=== PATIENT | male | born 1975 | race Caucasian/White ===

== ENCOUNTER 2016-07-18 18:30 | Emergency (ER) | payer SELFPAY ==
--- NOTE | 2016-07-18 19:00 | ER Document Report ---
ED Medical Screen (RME) - General Stated Complaint: BACK PAIN Time seen by provider: 18:58 Mode of Arrival: Wheelchair Information source: Patient Notes: 40-year-old male presents to ED left flank area. He states he has a chronic pain in that area and when the cold and 1 today the pain got much worse. States he is urinating normal. States he was working up on the roof today and is not sure if this is a continuation over his chronic back pain with this is a new problem. I have greeted and performed a rapid initial assessment of this patient. A comprehensive ED assessment and evaluation of the patient, analysis of test results and completion of medical decision making process will be conducted by an additional ED providers. TRAVEL OUTSIDE OF THE [place] IN LAST 30 DAYS: No - Related Data Allergies/Adverse Reactions: naproxen [Naproxen] Allergy (Verified 07/29/12 17:39) Past Medical History Renal/ Medical History: Reports: Hx Kidney Stones Musculoskeltal Medical History: Reports Hx Arthritis - Immunizations Hx Diphtheria, Pertussis, Tetanus Vaccination: Yes
[2016-07-18] MEDS ORDERED: ACETAMINOPHEN 325 MG TABLET PO ONE (19:01)
[2016-07-18 20:30] LABS: APPEARANCE,URINE SLIGHTLY-CLOUDY; BILIRUBIN,URINE NEGATIVE (NEGATIVE); GLUCOSE, URINE NEGATIVE (NEGATIVE); KETONES,URINE TRACE mg/dL (NEGATIVE); LEUKOCYTE ESTERASE,URINE NEGATIVE (NEGATIVE); NITRITE,URINE NEGATIVE (NEGATIVE); PROTEIN,URINE NEGATIVE (NEGATIVE); URINE SPECIFIC GRAVITY 1.009; UROBILINOGEN,URINE NEGATIVE mg/dL (<2.0)
[2016-07-18] MEDS ORDERED: PREDNISONE 20 MG TABLET PO ONE (20:30)
[2016-07-18] MEDS ORDERED: OXYCODONE HCL IR 5 MG TABLET PO ONE (20:30)
--- NOTE | 2016-07-18 20:32 | ER Document Report ---
ED General - General Chief Complaint: Back Pain Stated Complaint: BACK PAIN Time seen by provider: 20:30 Mode of Arrival: Wheelchair Notes: Patient is a 40-year-old male that comes emergency department for chief complaint of pain in his back in the left mid back, he denies radiation of the pain, he states symptoms started after he got off of the roof which she was working on today. Eyes any injury to the area, he states he's been told that he has herniated disks in the past, he also has a history of kidney stones but states this does not feel the same. He denies fever, nausea or vomiting, denies any other medical history. TRAVEL OUTSIDE OF THE [place] IN LAST 30 DAYS: No - Related Data Allergies/Adverse Reactions: naproxen [Naproxen] Allergy (Verified 07/29/12 17:39) Past Medical History - General Information source: Patient - Social History Smoking Status: Current Every Day Smoker Chew tobacco use (# tins/day): No Frequency of alcohol use: None Drug Abuse: None Lives with: Family Family History: Reviewed & Not Pertinent Patient has suicidal ideation: No Patient has homicidal ideation: No Renal/ Medical History: Reports: Hx Kidney Stones. Denies: Hx Peritoneal Dialysis Musculoskeltal Medical History: Reports Hx Arthritis Surgical Hx: Negative - Immunizations Hx Diphtheria, Pertussis, Tetanus Vaccination: Yes Review of Systems - Review of Systems Constitutional: No symptoms reported EENT: No symptoms reported Cardiovascular: No symptoms reported Respiratory: No symptoms reported Gastrointestinal: No symptoms reported Genitourinary: No symptoms reported Male Genitourinary: No symptoms reported Musculoskeletal: See HPI Skin: No symptoms reported Hematologic/Lymphatic: No symptoms reported Neurological/Psychological: No symptoms reported Physical Exam - Vital signs Vitals: Temp Pulse Resp BP Pulse Ox 97.7 F 87 20 148/87 H 99 07/18/16 18:59 07/18/16 18:59 07/18/16 18:59 07/18/16 18:59 07/18/16 18:59 Interpretation: Normal - General General appearance: Alert, Anxious In distress: Mild - Patient moves with some discomfort but does not appear to be in severe distress - HEENT Head: Normocephalic, Atraumatic Eyes: Normal Conjunctiva: Normal Extraocular movements intact: Yes Eyelashes: Normal Pupils: PERRL Sinus: Normal Nasal: Normal Mouth/Lips: Normal Mucous membranes: Normal Pharynx: Normal Neck: Normal - Respiratory Respiratory status: No respiratory distress Chest status: Nontender Breath sounds: Normal. No: Decreased air movement, Wheezing Chest palpation: Normal - Cardiovascular Rhythm: Regular. No: Tachycardia Heart sounds: Normal auscultation, S1 appreciated, S2 appreciated Murmur: No - Abdominal Inspection: Normal Distension: No distension Bowel sounds: Normal Tenderness: Nontender Organomegaly: No organomegaly - Back Back: Tender - Tender in the left paraspinal lumbar musculature, no CVA tenderness, no midline tenderness, patient moves upper and lower extremities in full range of motion without difficulty, patient does ambulate with a slight limp, negative straight leg raises, no saddle anesthesia, normal distal neurovascular exam - Extremities General upper extremity: Normal inspection, Nontender, Normal strength, Normal temperature General lower extremity: Normal inspection, Nontender, Normal strength, Normal temperature - Neurological Neuro grossly intact: Yes Cognition: Normal Orientation: AAOx4 [place] Coma Scale Eye Opening: Spontaneous [place] Coma Scale Verbal: Oriented [place] Coma Scale Motor: Obeys Commands Reagan Coma Scale Total: 15 Speech: Normal Motor strength normal: LUE, RUE, LLE, RLE Sensory: Normal - Psychological Associated symptoms: Normal affect, Normal mood - Skin Skin Temperature: Warm Skin Moisture: Dry Skin Color: Normal Course - Re-evaluation Re-evalutation: Patient ambulates but with slight difficulty and some pain, negative straight leg raises, no neurovascular deficits, painful palpation of the left lumbar paraspinal musculature. Will place patient on prednisone, pain medication, instructed to rest and care of his back, patient will follow-up with primary care and return for any concerning or worsening symptoms. Patient states satisfaction agreement with plan. - Vital Signs Vital signs: Temp Pulse Resp BP Pulse Ox 97.6 F 74 16 152/97 H 98 07/18/16 21:29 07/18/16 21:29 07/18/16 21:29 07/18/16 21:29 07/18/16 21:29 - Laboratory Laboratory results interpreted by me: 07/18/16 20:10 Urine Ketones TRACE H Urine Blood SMALL H Discharge - Discharge Clinical Impression: Back pain Qualifiers: Back pain location: low back pain Chronicity: acute Back pain laterality: left Sciatica presence: without sciatica Qualified Code(s): M54.5 - Low back pain Condition: Stable Disposition: HOME, SELF-CARE Additional Instructions: Imaging of the lower spine shows mild degenerative disc disease (arthritis) but no other abnormalities were noted. Your urine does not indicate any concerning abnormalities. Take the pain medication if needed, take prednisone as directed with food, rest , avoid lifting and twisting. Follow-up with primary care. Return to the emergency department for any concerning or worsening symptoms including difficulties with your bowel or bladder, loss of sensation, fever, etc. Prescriptions: Oxycodone HCl/Acetaminophen [Percocet 5-325 mg Tablet] 1 - 2 tab PO Q4H PRN #15 tablet PRN Reason: Prednisone [Deltasone 10 mg Tablet] 10 mg PO ASDIR PRN #21 tablet PRN Reason:
[2016-07-18 21:41] VITALS: BP 152/97
== END 2016-07-18 20:35 | disposition home or self-care (01) ==
LOC: ER 18:30
DX: M54.5 Low back pain (principal); F17.200 Nicotine dependence, unspecified, uncomplicated
CPT/HCPCS: 99283; 81001; 72110; J7512

== ENCOUNTER 2016-09-06 17:43 | Emergency (ER) | payer SELFPAY ==
--- NOTE | 2016-09-06 17:54 | ER Document Report ---
ED Medical Screen (RME) - General Stated Complaint: BACK PAIN Notes: Patient is a 40-year-old male presents with complaint of chronic back pain. Patient states that he takes Motrin and BC powder. He is not on pain management. Able to ambulate. Denies any urinary or stool incontinence. Denies any saddle anesthesia I have greeted and performed a rapid initial assessment of this patient. A comprehensive ED assessment and evaluation of the patient, analysis of test results and completion of the medical decision making process will be conducted by additional ED providers. TRAVEL OUTSIDE OF THE [place] IN LAST 30 DAYS: No - Related Data Allergies/Adverse Reactions: naproxen [Naproxen] Allergy (Verified 09/06/16 17:52) Past Medical History Renal/ Medical History: Reports: Hx Kidney Stones. Denies: Hx Peritoneal Dialysis Musculoskeltal Medical History: Reports Hx Arthritis - Immunizations Hx Diphtheria, Pertussis, Tetanus Vaccination: Yes Physical Exam - Vital signs Vitals: Temp Pulse Resp BP Pulse Ox 98.6 F 85 16 153/87 H 97 09/06/16 17:51 09/06/16 17:51 09/06/16 17:51 09/06/16 17:51 09/06/16 17:51 Course - Vital Signs Vital signs: Temp Pulse Resp BP Pulse Ox 98.6 F 85 16 153/87 H 97 09/06/16 17:51 09/06/16 17:51 09/06/16 17:51 09/06/16 17:51 09/06/16 17:51
[2016-09-06] MEDS ORDERED: OXYCODONE-ACETAMINOPHEN 5-325 MG TABLET PO ONE (19:34)
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
[2016-09-06 19:50] VITALS: BP 160/78
== END 2016-09-06 19:50 | disposition home or self-care (01) ==
LOC: ER 17:43
DX: M54.9 Dorsalgia, unspecified (principal); R03.0 Elevated blood-pressure reading, without diagnosis of hypertension; F17.210 Nicotine dependence, cigarettes, uncomplicated
CPT/HCPCS: 99283

== ENCOUNTER 2016-10-08 21:53 | Emergency (ER) | payer SELFPAY | END 2016-10-08 23:36 | disposition left against medical advice (07) | LOC: ER 21:53 | DX: Z53.9 Procedure and treatment not carried out, unspecified reason (principal); M54.9 Dorsalgia, unspecified ==

== ENCOUNTER → 2016-11-12 | Outpatient (CLI) | payer OTHER ==
--- NOTE | 2016-11-12 09:01 | RADIOLOGY REPORT (SQ) ---
EXAM DESCRIPTION: MRI LUMBAR SPINE WITHOUT COMPLETED DATE/TIME: 11/12/2016 8:51 am REASON FOR STUDY: STRAIN OF MUSCLE, FASCIA AND TENDON OF LUMBAR S39.012A STRAIN OF MUSCLE, FASCIA A ND TENDON OF LOWER BACK, M54.16 RADICULOPATHY, LUMBAR REGION COMPARISON: None. TECHNIQUE: Sagittal and Axial imaging includes T1, T2, STIR and gradient echo sequences. Coronal T2/ HASTE imaging. LIMITATIONS: None. FINDINGS: VISUALIZED UPPER ABDOMEN: Limited evaluation. No acute or suspicious findings suggested. SEGMENTATION: No transitional anatomy. The lowest well-developed disc space is labeled L5-S1. ALIGNMENT: Anatomic. VERTEBRAE: Intact. BONE MARROW: Normal. No marrow replacement or reactive changes. DISC SIGNAL: Normal. No significant abnormal signal or loss of height. POSTERIOR ELEMENTS: Generally intact. No pars defect evident. HARDWARE: None in the spine. CORD AND CONUS: Normal in size and signal intensity. Conus at the appropriate level. SOFT TISSUES: No aortic aneurysm seen. No bulky retroperitoneal adenopathy or mass. No paraspinal mas s or fluid. L1-L2: No significant spinal stenosis or exit foraminal stenosis. L2-L3: No significant spinal stenosis or exit foraminal stenosis. L3-L4: No significant spinal stenosis or exit foraminal stenosis. L4-L5: No significant spinal stenosis or exit foraminal stenosis. L5-S1: No significant spinal stenosis or exit foraminal stenosis. LOWER THORACIC: Incompletely imaged. No stenosis seen. SACRUM: Visualized upper sacrum intact. OTHER: No other significant findings. IMPRESSION: NORMAL MRI LUMBAR SPINE. TECHNICAL DOCUMENTATION: JOB ID: [id number] [employer]- All Rights Reserved
== END ==
LOC: RAD 07:59
PROVIDERS: ATTEND Physician Assistant
DX: S39.012A Strain of muscle, fascia and tendon of lower back, initial encounter (principal); M54.16 Radiculopathy, lumbar region
CPT/HCPCS: 72148

== ENCOUNTER 2016-12-11 19:59 | Emergency (ER) | payer OTHER ==
[2016-12-11] MEDS ORDERED: LIDOCAINE 2% VISCOUS SOLN 20 ML UDCUP PO ONE (21:19)
[2016-12-11] MEDS ORDERED: METOCLOPRAMIDE HCL ORAL SOLN 10 MG/10 ML UDCUP PO ONE (21:19)
[2016-12-11] MEDS ORDERED: MAG HYDROX/AL HYDROX/SIMETH SUSP 30 ML UDCUP PO ONE (21:19)
--- NOTE | 2016-12-11 21:20 | ER Document Report ---
ED Medical Screen (RME) - General Chief Complaint: Chest Pain Stated Complaint: CHEST PAIN Time Seen by Provider: 12/11/16 21:18 Notes: 41-year-old male, chief complaint of chest pain, symptoms started at 6 PM while he was sitting down. He states the pain feels like it is under his left lower rib. He states it is improved from previously. He has already taken 500 mg of aspirin by using BC powder. He admits that he uses BC powder all the time. He denies vomiting, shortness of breath, fever. He smokes. His father had a heart attack. He denies personal history of cardiovascular disease, states she is treated for anxiety and depression. TRAVEL OUTSIDE OF THE [place] IN LAST 30 DAYS: No - Related Data Allergies/Adverse Reactions: naproxen [Naproxen] Allergy (Verified 09/06/16 17:52) Past Medical History Neurological Medical History: Reports: Hx Migraine Renal/ Medical History: Reports: Hx Kidney Stones. Denies: Hx Peritoneal Dialysis Musculoskeltal Medical History: Reports Hx Arthritis - Immunizations Hx Diphtheria, Pertussis, Tetanus Vaccination: Yes Physical Exam - Vital signs Vitals: Temp Pulse Resp BP Pulse Ox 97.9 F 90 18 168/95 H 97 12/11/16 20:32 12/11/16 20:32 12/11/16 20:32 12/11/16 20:32 12/11/16 20:32 - Cardiovascular Rhythm: Regular. No: Tachycardia Heart sounds: Normal auscultation, S1 appreciated, S2 appreciated - Abdominal Tenderness: Tender - Some left upper quadrant tenderness on exam, otherwise unremarkable Course - Vital Signs Vital signs: Temp Pulse Resp BP Pulse Ox 97.9 F 90 18 168/95 H 97 12/11/16 20:32 12/11/16 20:32 12/11/16 20:32 12/11/16 20:32 12/11/16 20:32
[2016-12-11 21:49] LABS: ABSOLUTE BASOPHILS # (AUTO) 0.2 10^3/uL (0.0-0.2); ABSOLUTE EOSINOPHILS # (AUTO) 0.7 10^3/uL (0.0-0.6); ABSOLUTE LYMPHOCYTES (AUTO) 2.5 10^3/uL (0.5-4.7); ABSOLUTE MONOCYTES (AUTO) 1.1 10^3/uL (0.1-1.4); ABSOLUTE NEUT (AUTO) 6.8 10^3/uL (1.7-8.2); BASOPHILS % (AUTO) 1.4 % (0-2); EOSINOPHILS % (AUTO) 6.5 % (0-6); HEMATOCRIT 43.8 % (37.9-51.0); HEMOGLOBIN 14.3 g/dL (13.5-17.0); HGB HCT DIFFERENCE -0.9; MEAN CORPUSCULAR HEMOGLOBIN 30.7 pg (27.0-33.4); MEAN CORPUSCULAR HGB CONC 32.6 g/dL (32.0-36.0); MEAN CORPUSCULAR VOLUME 94 fl (80-97); MONOCYTES % (AUTO) 9.8 % (3-13); RED BLOOD COUNT 4.65 10^6/uL (4.35-5.55); RED CELL DISTRIBUTION WIDTH 14.1 % (11.5-14.0); SEGMENTED NEUTROPHILS % (AUTO) 60.3 % (42-78); WHITE BLOOD COUNT 11.3 10^3/uL (4.0-10.5)
--- NOTE | 2016-12-11 21:51 | RADIOLOGY REPORT (SQ) ---
EXAM DESCRIPTION: CHEST SINGLE VIEW COMPLETED DATE/TIME: 12/11/2016 9:42 pm REASON FOR STUDY: chest pain COMPARISON: None. EXAM PARAMETERS: NUMBER OF VIEWS: One view. TECHNIQUE: Single frontal radiographic view of the chest acquired. RADIATION DOSE: NA LIMITATIONS: None. FINDINGS: LUNGS AND PLEURA: No opacities, masses or pneumothorax. No pleural effusion. MEDIASTINUM AND HILAR STRUCTURES: No masses. Contour normal. HEART AND VASCULAR STRUCTURES: Heart normal in size. Normal vasculature. BONES: No acute findings. HARDWARE: None in the chest. OTHER: No other significant finding. IMPRESSION: NO ACUTE RADIOGRAPHIC FINDING IN THE CHEST. TECHNICAL DOCUMENTATION: JOB ID: [id number]
[2016-12-11 22:05] LABS: ALANINE AMINOTRANSFERASE 45 U/L (21-72); ALBUMIN 4.3 g/dL (3.5-5.0); ALKALINE PHOSPHATASE 112 U/L (38-126); ANION GAP 14 (5-19); ASPARTATE AMINO TRANSFERASE 26 U/L (17-59); BILIRUBIN,DIRECT 0.3 mg/dL (0.0-0.4); BILIRUBIN,TOTAL 0.3 mg/dL (0.2-1.3); BLOOD UREA NITROGEN 19 mg/dL (7-20); CALCIUM 9.5 mg/dL (8.4-10.2); CARBON DIOXIDE 20 mmol/L (22-30); CHLORIDE 110 mmol/L (98-107); CREATINE KINASE 141 U/L (55-170); CREATININE RESULT 0.87 mg/dL (0.52-1.25); GLUCOSE 133 mg/dL (75-110); POTASSIUM 3.9 mmol/L (3.6-5.0); SODIUM 143.8 mmol/L (137-145); TOTAL PROTEIN 7.4 g/dL (6.3-8.2)
[2016-12-11 22:23] LABS: CREATINE KINASE MB 1.53 ng/mL (<4.55)
[2016-12-11 22:25] LABS: TROPONIN I < 0.012 ng/mL
--- NOTE | 2016-12-11 22:57 | ER Document Report ---
ED Cardiac - General Chief Complaint: Chest Pain Stated Complaint: CHEST PAIN Time Seen by Provider: 12/11/16 21:18 TRAVEL OUTSIDE OF THE [place] IN LAST 30 DAYS: No - HPI Notes: Patient is a 41yo male smoker who comes to the office c/o left lateral chest pain near the decubitus area x 4 hours. Pt states that he had the same pain yesterday about 1.5 hours after taking his celexa, which lasted for 2 hours then went away. The pain is described as dull, but can be sharp on occasion with occasional radiation around the left lateral side to his back. He was having pain with deep inspirations a few hours ago, but that has resolved. He did take 500mg ASA prior to arrival. Patient states that moving and twisting at the same time exacerbates the pain which is then decreased when he stops that motion. Pt able to ambulate without any CHEN or worsening CP. Father had a WI. No significant PMH/cardiac hx otherwise. He has a h/o anxiety/depression and panic attacks for which he is taking celexa and hydroxyzine for through [facility] (Dr. Smith). No past surgeries. patient states that he had a syncopal episode after being on naproxen for 1 week, so he has stayed away from it since. No other drug allergies. Denies any fever, URI symptoms, sore throat, cough, wheeze, sob, dyspnea, CHEN, palpitations, syncope, abd pain, n/v/d/c, urinary retention, loss of control of b/b, dysuria, hematuria, muscle weakness/ paralysis, or rash. - Related Data Allergies/Adverse Reactions: naproxen [Naproxen] Allergy (Verified 09/06/16 17:52) Past Medical History - Social History Smoking Status: Current Every Day Smoker Chew tobacco use (# tins/day): No Smoking Education Provided: Yes - <2mins Frequency of alcohol use: None Drug Abuse: None Family History: Reviewed & Not Pertinent Patient has suicidal ideation: No Patient has homicidal ideation: No Neurological Medical History: Reports: Hx Migraine Renal/ Medical History: Reports: Hx Kidney Stones. Denies: Hx Peritoneal Dialysis Musculoskeltal Medical History: Reports Hx Arthritis Surgical Hx: Negative - Immunizations Hx Diphtheria, Pertussis, Tetanus Vaccination: Yes Review of Systems - Review of Systems Notes: REVIEW OF SYSTEMS: CONSTITUTIONAL : Denies fever, chills, or sweats. Denies recent illness. EENT: Denies eye, ear, throat, or mouth pain or symptoms. Denies nasal or sinus congestion or discharge. Denies throat, tongue, or mouth swelling or difficulty swallowing. CARDIOVASCULAR: see hpi RESPIRATORY: see hpi GASTROINTESTINAL: Denies abdominal pain or distention. Denies nausea, vomiting , or diarrhea. Denies blood in vomitus, stools, or per rectum. Denies black, tarry stools. Denies constipation. GENITOURINARY: Denies difficulty urinating, painful urination, burning, frequency, blood in urine, or discharge. MUSCULOSKELETAL: see hpi SKIN: Denies rash, lesions or sores. NEUROLOGICAL: Denies confusion or altered mental status. Denies passing out or loss of consciousness. Denies dizziness or lightheadedness. Denies headache. Denies weakness or paralysis or loss of use of either side. Denies problems with gait or speech. Denies sensory loss, numbness, or tingling. Denies seizures. PSYCHIATRIC: see hpi. No SI/HI. ALL OTHER SYSTEMS REVIEWED AND NEGATIVE. Dictation was performed using [employer] voice recognition software Physical Exam - Vital signs Vitals: Temp Pulse Resp BP Pulse Ox 97.9 F 90 18 168/95 H 97 12/11/16 20:32 12/11/16 20:32 12/11/16 20:32 12/11/16 20:32 12/11/16 20:32 Notes: PHYSICAL EXAMINATION: GENERAL: Well-appearing, well-nourished and in no acute distress. HEAD: Atraumatic, normocephalic. EYES: Pupils equal round and reactive to light, extraocular movements intact, sclera anicteric, conjunctiva are normal. ENT: EAC clear b/l. TM's intact b/l without erythema, fluid, or perforation. Nares patent and without discharge. oropharynx clear without exudates. No tonsilar hypertrophy or erythema. Moist mucous membranes. No sinus tenderness. NECK: Normal range of motion, supple without lymphadenopathy. No rigidity. Chest: Non-tender, no deformity, equal rise. No ecchymosis, abrasion/ laceration noted. LUNGS: Breath sounds clear to auscultation bilaterally and equal. No wheezes rales or rhonchi. HEART: Regular rate and rhythm without murmurs, rubs, gallops. ABDOMEN: Soft, nontender, nondistended abdomen. No guarding, no rebound. No masses appreciated. Normal bowel sounds present. No CVA tenderness bilaterally. No pulsatile mass appreciated. Musculoskeletal: FROM to passive/active. Strength 5+/5. Extremities: No cyanosis, clubbing, or edema b/l. Peripheral pulses 2+. Capillary refill less than 3 seconds. NEUROLOGICAL: normal gait. Normal sensory, motor exams PSYCH: Normal mood, normal affect. SKIN: Warm, Dry, normal turgor, no rashes or lesions noted. Course - Re-evaluation Re-evalutation: 12/11/16 02:15 Patient is an afebrile, well-hydrated, 41yo male who presents with atypical chest pain after cardiac work up. Vitals stable. PE otherwise unremarkable. EKG neg x2 (Dr. Centeno reviewed), cardiac enzymes neg x2. CXR unremarkable. GI cocktail did not help per patient. I suspect that his atypical pain could be musculoskeletal/GI (pt consumes NSAIDs (BC powder) frequently). Low risk for pericarditis, ACS, pneumo, PE, or AAA based on work up. Heart Score of 2 (low) & PERC score of 0 (low). Pt tolerating PO intake in the ED. I will send him home with a trial of zantac/carafate for now with close f/u with his PCM in 2-3 days. Reviewed that they may pursue a stress test and/or further GI work up ( i.e. endoscopy). Advised to dec/stop smoking and stop the BC powder. Return to the ED with any worsening symptoms. Pt in agreement. Reviewed case with Dr. Maharaj who is in agreement with plan. - Vital Signs Vital signs: Temp Pulse Resp BP Pulse Ox 97.9 F 90 16 155/106 H 99 12/11/16 20:32 12/11/16 20:32 12/12/16 00:01 12/12/16 00:01 12/12/16 00:01 - Laboratory Result Diagrams: 12/11/16 21:25 12/11/16 21:25 Laboratory results interpreted by me: 12/11/16 12/11/16 12/11/16 21:25 21:25 23:00 WBC 11.3 H RDW 14.1 H Eosinophils % 6.5 H Absolute Eosinophils 0.7 H Chloride 110 H Carbon Dioxide 20 L Glucose 133 H Urine Blood SMALL H Discharge - Discharge Clinical Impression: Atypical chest pain Condition: Stable Disposition: HOME, SELF-CARE Instructions: Antacid Therapy ([facility]), Chest Pain of Unclear Cause ([facility]), Chest Wall Pain ([facility]), Aspirin (Cardiac) ([facility]) Additional Instructions: Chest Pain of Unclear Cause The exact cause of your chest pain isn't clear. Fortunately, there is no evidence of a dangerous medical condition at this time. Further testing may be required to find the source of the pain. Most often, we find that this pain is coming from the chest wall -- the muscles or rib joints in the chest. But chest pain can come from the lung and lung lining, the esophagus, the heart valves or heart lining, and even the stomach or gallbladder. Rest. Eat lightly until the pain is gone. We may prescribe medicine for pain and inflammation. You should call the physician immediately if the pain radiates to the shoulder, jaw or arms; if you start to run a fever or develop a cough; or if you develop shortness of breath, or other new or alarming symptoms. Maintain fluids Decrease consumption of BC powder Decrease/cease smoking Take medications as directed Recheck with your PCM in the next 2-3 days for a recheck and further evaluation. Return to the ED with any worsening symptoms, shortness of breath, worsening chest pain, shortness of breath on exertion, trouble breathing, palpitations, syncope, abdominal pain, n/v, headache, or other worsening symptoms otherwise. Prescriptions: Ranitidine HCl [Zantac 150 mg Tablet] 150 mg PO BID #30 tablet Sucralfate [Carafate Susp 1 Gm/10 Ml Udcup] 1 gm PO TID PRN #300 ml PRN Reason: Forms: Elevated Blood Pressure, Smoking Cessation Education
[2016-12-11] MEDS ORDERED: NORMAL SALINE 1000 ML 1,000 ML IV ONE (23:22)
[2016-12-11 23:25] LABS: APPEARANCE,URINE SLIGHTLY-CLOUDY; BILIRUBIN,URINE NEGATIVE (NEGATIVE); GLUCOSE, URINE NEGATIVE (NEGATIVE); KETONES,URINE NEGATIVE (NEGATIVE); LEUKOCYTE ESTERASE,URINE NEGATIVE (NEGATIVE); NITRITE,URINE NEGATIVE (NEGATIVE); PROTEIN,URINE NEGATIVE (NEGATIVE); URINE SPECIFIC GRAVITY 1.029; UROBILINOGEN,URINE NEGATIVE mg/dL (<2.0)
[2016-12-12 03:03] VITALS: BP 170/110
--- NOTE | 2016-12-12 03:56 | EKG REPORT ---
SEVERITY:- NORMAL ECG - SINUS RHYTHM : Confirmed by: Jada Carreon MD 12-Dec-2016 03:55:32
--- NOTE | 2016-12-12 03:56 | EKG REPORT ---
SEVERITY:- NORMAL ECG - SINUS RHYTHM : Confirmed by: Jada Carreon MD 12-Dec-2016 03:55:35
== END 2016-12-12 03:00 | disposition home or self-care (01) ==
LOC: ER 19:59
DX: R07.89 Other chest pain (principal); F32.9 Major depressive disorder, single episode, unspecified; F41.9 Anxiety disorder, unspecified; F41.0 Panic disorder [episodic paroxysmal anxiety]; F17.200 Nicotine dependence, unspecified, uncomplicated; Z71.6 Tobacco abuse counseling; Z79.899 Other long term (current) drug therapy; Z82.49 Family history of ischemic heart disease and other diseases of the circulatory system; Z88.8 Allergy status to other drugs, medicaments and biological substances
CPT/HCPCS: 93005 ×2; 99285; 96360; 36415; 82553; 82550; 85025; 80053; 81001; 84484; 71010; 93010 ×2; J3490; J7030

== ENCOUNTER 2017-03-12 21:26 | Emergency (ER) | payer OTHER ==
[2017-03-12] MEDS ORDERED: HYDROXYZINE PAMOATE 50 MG CAPSULE PO ONE (22:24)
--- NOTE | 2017-03-12 22:53 | RADIOLOGY REPORT (SQ) ---
EXAM DESCRIPTION: CHEST SINGLE VIEW COMPLETED DATE/TIME: 03/12/2017 10:42 pm REASON FOR STUDY: chest pain COMPARISON: 12/11/2016 EXAM PARAMETERS: NUMBER OF VIEWS: One view. TECHNIQUE: Single frontal radiographic view of the chest acquired. RADIATION DOSE: NA LIMITATIONS: None. FINDINGS: LUNGS AND PLEURA: No acute opacities, masses or pneumothorax. No pleural effusion. MEDIASTINUM AND HILAR STRUCTURES: Stable. HEART AND VASCULAR STRUCTURES: Heart normal in size. Normal vasculature. BONES: No acute findings. HARDWARE: None in the chest. OTHER: No other significant finding. IMPRESSION: NO ACUTE RADIOGRAPHIC FINDING IN THE CHEST. TECHNICAL DOCUMENTATION: JOB ID: [id number]
--- NOTE | 2017-03-13 00:07 | ER Document Report ---
ED General - General Chief Complaint: Anxiety Stated Complaint: CHEST PAIN Time Seen by Provider: 03/12/17 22:23 Notes: Patient is a 41-year-old male with past medical history of anxiety and depression, ongoing tobacco abuse who presents with chest pain while having a panic attack. States he got into an argument with significant other, began having a panic attack and developed chest pain. States that it was a severe, crushing left-sided chest pain without radiation to the arms, jaw or back. States he was hyperventilating at the time but his symptoms have now all completely resolved spontaneously. He has a history of similar episodes in the past during anxiety attacks. States "I am certain this is related to my panic attack". He is not currently taking any medications due to a recent transition in his psychiatric providers. He has no history of DVT or pulmonary embolus. States that when the pain was present nothing improves or worsen the symptoms. TRAVEL OUTSIDE OF THE [place] IN LAST 30 DAYS: No - Related Data Allergies/Adverse Reactions: gabapentin Allergy (Verified 03/12/17 21:38) naproxen [Naproxen] Allergy (Verified 03/12/17 21:38) Past Medical History - General Information source: Patient - Social History Smoking Status: Current Every Day Smoker Frequency of alcohol use: None Drug Abuse: None Lives with: Spouse/Significant other Family History: Reviewed & Not Pertinent Patient has suicidal ideation: No Patient has homicidal ideation: No Neurological Medical History: Reports: Hx Migraine Renal/ Medical History: Reports: Hx Kidney Stones. Denies: Hx Peritoneal Dialysis Musculoskeltal Medical History: Reports Hx Arthritis - Immunizations Hx Diphtheria, Pertussis, Tetanus Vaccination: Yes Review of Systems - Review of Systems Notes: Constitutional: Negative for fever. HENT: Negative for sore throat. Eyes: Negative for visual changes. Cardiovascular: Positive for chest pain. Respiratory: Negative for shortness of breath. Gastrointestinal: Negative for abdominal pain, vomiting or diarrhea. Genitourinary: Negative for dysuria. Musculoskeletal: Positive for chronic low back pain Skin: Negative for rash. Neurological: Negative for headaches, weakness or numbness. 10 point ROS negative except as marked above and in HPI. Physical Exam - Vital signs Vitals: Temp Pulse Resp BP Pulse Ox 97.6 F 90 18 143/96 H 97 03/12/17 21:39 03/12/17 21:39 03/12/17 21:39 03/12/17 21:39 03/12/17 21:39 Interpretation: Hypertensive Notes: PHYSICAL EXAMINATION: GENERAL: Well-appearing, well-nourished and in no acute distress. HEAD: Atraumatic, normocephalic. EYES: Pupils equal round and reactive to light, extraocular movements intact, sclera anicteric, conjunctiva are normal. ENT: nares patent, oropharynx clear without exudates. Moist mucous membranes. NECK: Normal range of motion, supple without lymphadenopathy LUNGS: Breath sounds clear to auscultation bilaterally and equal. No wheezes rales or rhonchi. HEART: Regular rate and rhythm without murmurs ABDOMEN: Soft, nontender, normoactive bowel sounds. No guarding, no rebound. No masses appreciated. EXTREMITIES: Normal range of motion, no pitting or edema. No cyanosis. NEUROLOGICAL: No focal neurological deficits. Moves all extremities spontaneously and on command. PSYCH: Somewhat anxious but in no acute distress SKIN: Warm, Dry, normal turgor, no rashes or lesions noted. Course - Re-evaluation Re-evalutation: 03/13/17 00:04 Presentation of chest pain in an otherwise well appearing patient. Low clinical suspicion for ACS given clinical history, exam, EKG without ST elevations or depressions, and negative initial troponin. HEART score less than or equal to 3. PE also seems unlikely given clinical history, absence of tachycardia or dyspnea. Patient is PERC criteria negative. CXR without evidence of pneumothorax or pneumonia. No widened mediastinum. Aortic dissection also seems unlikely given history, symmetric pulses, CXR, and vitals. Patient has remained chest pain-free. I do not believe serial troponin assay testing is indicated given patient's very low clinical risk for ACS. HEART Score: History:0 EC Age:0 Risk Factors:1 Troponin:0 Total: 1 Patient himself states that he is certainly symptoms are related to his anxiety attack which is also resolved. At this time will discharge with return precautions and follow-up recommendations. Verbal discharge instructions given a the bedside and opportunity for questions given. Medication warnings reviewed. Patient is in agreement with this plan and has verbalized understanding of return precautions and the need for primary care follow-up in the next 24-72 hours. - Vital Signs Vital signs: Temp Pulse Resp BP Pulse Ox 97.6 F 90 26 H 150/116 H 99 03/12/17 21:39 03/12/17 21:39 03/13/17 00:17 03/13/17 00:13 03/13/17 00:17 - Diagnostic Test Radiology reviewed: Image reviewed, Reports reviewed Radiology results interpreted by me: 03/13/17 00:06 Chest x-ray: No acute infiltrate or pneumothorax - EKG Interpretation by Me Additional EKG results interpreted by me: 03/13/17 00:06 Normal sinus rhythm. Rate 98. No ST elevations or depressions. QTC is 430. Discharge - Discharge Clinical Impression: Anxiety attack Chest pain Qualifiers: Chest pain type: unspecified Qualified Code(s): R07.9 - Chest pain, unspecified Condition: Good Disposition: HOME, SELF-CARE Instructions: Anxiety ([facility]) Additional Instructions: You were seen today for a panic attack. Please return if you develop recurrence of your symptoms, thoughts of wanting to harm yourself, or any other symptoms that are concerning to you. Follow-up with your primary doctor or mental health provider regarding today's ED visit.
[2017-03-13 00:18] VITALS: BP 150/116
--- NOTE | 2017-03-13 07:17 | EKG REPORT ---
SEVERITY:- BORDERLINE ECG - SINUS RHYTHM NONSPECIFIC ST-T CHANGES- INFERIOR LEADS : Confirmed by: Riaz Erickson MD 13-Mar-2017 07:16:37
== END 2017-03-13 00:20 | disposition home or self-care (01) ==
LOC: ER 21:26
DX: F41.9 Anxiety disorder, unspecified (principal); R07.9 Chest pain, unspecified; M54.5 Low back pain; G89.29 Other chronic pain; F17.200 Nicotine dependence, unspecified, uncomplicated; Z88.6 Allergy status to analgesic agent; Z88.8 Allergy status to other drugs, medicaments and biological substances
CPT/HCPCS: 36415; 71010; 84484; 93005; 93010; 99284

== ENCOUNTER 2017-12-01 22:22 | Emergency (ER) | payer SELFPAY ==
[2017-12-02] MEDS ORDERED: ENOXAPARIN SODIUM INJ 80 MG/0.8 ML DISP.SYRIN SUBCUT ONE (00:59)
[2017-12-02] MEDS ORDERED: CLINDAMYCIN HCL 150 MG CAPSULE PO ONE (00:59)
--- NOTE | 2017-12-02 01:03 | ER Document Report ---
ED General - General Chief Complaint: Leg Pain Stated Complaint: KNEE PAIN Time Seen by Provider: 12/02/17 00:42 Notes: Patient is a 42-year-old male presents with complaint of lower leg pain and swelling. Patient says he first noticed some soreness into the right calf muscle and near the right knee this morning. Did not think much of it and then he went to a neighbor's house to help and redo floors. Since then he has noticed a large amount of swelling into the right lower leg and calf muscle. He has never had anything like this before. Left leg is unchanged. He does have just some slight erythema the anterior portion of the leg. He is able flex and extend the knee without difficulty. No fevers. No chest pain or shortness of breath. No recent long trips. No recent surgeries. No other complaints at this time. TRAVEL OUTSIDE OF THE [place] IN LAST 30 DAYS: No - Related Data Allergies/Adverse Reactions: gabapentin Allergy (Verified 03/12/17 21:38) naproxen [Naproxen] Allergy (Verified 03/12/17 21:38) Past Medical History - Social History Smoking Status: Current Every Day Smoker Frequency of alcohol use: None Drug Abuse: None Family History: Reviewed & Not Pertinent Neurological Medical History: Reports: Hx Migraine Renal/ Medical History: Reports: Hx Kidney Stones. Denies: Hx Peritoneal Dialysis Musculoskeltal Medical History: Reports Hx Arthritis Psychiatric Medical History: Reports: Hx Bipolar Disorder - Immunizations Hx Diphtheria, Pertussis, Tetanus Vaccination: Yes Review of Systems - Review of Systems Notes: My Normal Review Basic REVIEW OF SYSTEMS: CONSTITUTIONAL : Denies fever, chills, or sweats. Denies recent illness. EENT: Denies eye, ear, throat, or mouth pain or symptoms. Denies nasal or sinus congestion. CARDIOVASCULAR: Denies chest pain. RESPIRATORY: Denies cough, cold, or chest congestion. Denies shortness of breath, difficulty breathing, or wheezing. GASTROINTESTINAL: Denies abdominal pain. Denies nausea, vomiting, or diarrhea. Denies constipation. Last BM: GENITOURINARY: Denies difficulty urinating, painful urination, burning, frequency, or blood in urine. FEMALE GENITOURINARY: Denies vaginal bleeding, abnormal or irregular periods. LMP: MUSCULOSKELETAL: Right leg pain and swelling. SKIN: Denies rash or skin lesions. NEUROLOGICAL: Denies sensory or motor loss. ALL OTHER SYSTEMS REVIEWED AND NEGATIVE. Physical Exam - Vital signs Vitals: Temp Pulse Resp BP Pulse Ox 98.1 F 83 20 137/88 H 98 12/01/17 23:13 12/01/17 23:13 12/01/17 23:13 12/01/17 23:13 12/01/17 23:13 - Notes Notes: General Appearance: Well nourished, alert, cooperative, no acute distress, mild obvious discomfort. Vitals: reviewed, See vital signs table. Extremities: strength 5/5 in all extremities, good pulses in all extremities, patient has obvious swelling to the right calf muscle. Swelling is from approximately just behind the distal knee down to two thirds the way down the leg. Right leg is significant more swollen in comparison to the left. Does have some mild erythema over the anterior aspect of the price and distal knee. There is no abscess. There is no fluctuance. Patient still has good strength with plantar dorsiflexion of the foot. He has no pain to palpation of the Achilles tendon. Good capillary refill. Good distal pulses. Skin: warm, dry, appropriate color, no rash Neuro: speech clear, oriented x 3, normal affect, responds appropriately to questions. Course - Re-evaluation Re-evalutation: 12/02/17 06:16 I did talk to patient at length about several options. Option #1 would be to just stay in the ER overnight and will get his test done in the morning when we have the availability of venous Doppler ultrasound. Option #2 would be to return to the ER in the morning and check into the ER he can have the venous Doppler performed to the ER. Option #3 was to take outpatient prescription and have it done today via outpatient. I informed patient is to call the number on the prescription to get the study arrange for later today. Patient chooses option #3. He was given a dose of Lovenox. He does have the mild erythema over the anterior portion leg and there is a small abrasion on the leg suggesting that the erythemic could potentially be cellulitis. Will place on clindamycin. I do not think the entirety of swelling of his legs with cellulitis as erythematous just localized to a small anterior portion of the leg and the swelling is much more significant vast. Informed him that either way he must follow-up with a physician in 2 days for reevaluation regardless of what his ultrasound study shows. Encouraged him return to ER immediately if he has fevers, worsening pain, or spreading redness. Patient agrees with plan and will be discharged home. Dictation of this chart was performed using voice recognition software; therefore, there may be some unintended grammatical errors. - Vital Signs Vital signs: Temp Pulse Resp BP Pulse Ox 97.6 F 75 20 133/80 H 100 12/02/17 01:30 12/02/17 01:30 12/02/17 01:30 12/02/17 01:30 12/02/17 01:30 Discharge - Discharge Clinical Impression: Right leg swelling Condition: Stable Disposition: HOME, SELF-CARE Additional Instructions: Please take the antibiotic as prescribed. Please return to the ER after 8am or call the phone number on the prescription to have the ultrasound test on your leg performed today. Please just return to the ER during the day if they are unable to give you an appointment to have the test done today. please follow up with a doctor in 2 days for reevaluation. Please keep the leg elevated. Please return to the ER immediately if you develop increasing swelling, worsening pain , chest pain, difficulty breathing, spreading redness, fevers, or feel unwell. Prescriptions: Clindamycin HCl 300 mg PO ASDIR #56 capsule Forms: Follow-Up Outpatient Testing
[2017-12-02 02:39] VITALS: BP 133/80
== END 2017-12-02 01:32 | disposition home or self-care (01) ==
LOC: ER 22:22
DX: R22.41 Localized swelling, mass and lump, right lower limb (principal); M79.604 Pain in right leg; M79.1 Myalgia; F17.200 Nicotine dependence, unspecified, uncomplicated; Z87.442 Personal history of urinary calculi
CPT/HCPCS: 99283; 96372; J1650

== ENCOUNTER → 2017-12-02 | Outpatient (CLI) | payer SELFPAY ==
--- NOTE | 2017-12-02 13:10 | XCELERA REPORT ---
[address] [address] Lower Extremity Venous Evaluation Name: FAY JEAN-BAPTISTE Age: 42 yrs Gender: Male : 1975 Patient Status: Outpatient Patient Location: Study Date: 12/02/2017 10:40 AM Procedure: Color flow and duplex imaging of the veins of the right lower extremity as well as the left Common Femoral vein. Reason For Study: RLE SWELLING/PAIN Ordering Physician: LACY MORENO Performed By: Jackelyn Garzon Right Sided Venous Evaluation Normal vessel filling wall to wall, compression and augmentation as well as Colour flow down to the infrageniculate veins. Left Sided Venous Evaluation The left common femoral vein is fully compressible. Spontaneous and phasic flow is present in the left common femoral vein. Interpretation Summary No duplex evidence of DVT or obstruction in the right lower extremity nor in the left Common Femoral vein. : LACY MORENO > Lane [address]
== END ==
LOC: SP 10:19
PROVIDERS: ATTEND Emergency Medicine
DX: M79.604 Pain in right leg (principal); M79.89 Other specified soft tissue disorders
CPT/HCPCS: 93971

== ENCOUNTER 2018-04-09 16:50 | Emergency (ER) | payer SELFPAY ==
--- NOTE | 2018-04-09 17:29 | ER Document Report ---
ED Medical Screen ([facility]ME) - General Chief Complaint: Possible Kidney Stone Stated Complaint: FLANK PAIN/BLOOD IN URINE Time Seen by Provider: 04/09/18 17:22 Notes: 42 years old male with a history of multiple kidney stones presents today with hematuria and right flank pain. No nausea vomiting fevers chills or other constitutional symptoms. Slight right flank tenderness. TRAVEL OUTSIDE OF THE [place] IN LAST 30 DAYS: No - Related Data Allergies/Adverse Reactions: gabapentin Allergy (Verified 04/09/18 16:51) naproxen [Naproxen] Allergy (Verified 04/09/18 16:51) Past Medical History Neurological Medical History: Reports: Hx Migraine Renal/ Medical History: Reports: Hx Kidney Stones. Denies: Hx Peritoneal Dialysis Musculoskeltal Medical History: Reports Hx Arthritis Psychiatric Medical History: Reports: Hx Bipolar Disorder - Immunizations Hx Diphtheria, Pertussis, Tetanus Vaccination: Yes Physical Exam - Vital signs Vitals: Temp Pulse Resp BP Pulse Ox 97.8 F 84 18 152/96 H 99 04/09/18 16:55 04/09/18 16:55 04/09/18 16:55 04/09/18 16:55 04/09/18 16:55 Course - Vital Signs Vital signs: Temp Pulse Resp BP Pulse Ox 97.8 F 84 18 152/96 H 99 04/09/18 16:55 04/09/18 16:55 04/09/18 16:55 04/09/18 16:55 04/09/18 16:55
[2018-04-09 18:14] LABS: ABSOLUTE BASOPHILS # (AUTO) 0.2 10^3/uL (0.0-0.2); ABSOLUTE EOSINOPHILS # (AUTO) 0.4 10^3/uL (0.0-0.6); ABSOLUTE NEUT (AUTO) 7.4 10^3/uL (1.7-8.2); BASOPHILS % (AUTO) 2.3 % (0-2); EOSINOPHILS % (AUTO) 3.7 % (0-6); HEMATOCRIT 47.5 % (37.9-51.0); HEMOGLOBIN 16.3 g/dL (13.5-17.0); MEAN CORPUSCULAR HEMOGLOBIN 32.1 pg (27.0-33.4); MEAN CORPUSCULAR HGB CONC 34.4 g/dL (32.0-36.0); MEAN CORPUSCULAR VOLUME 93 fl (80-97); MONOCYTES % (AUTO) 9.3 % (3-13); PLATELET COUNT 294 10^3/uL (150-450); RED BLOOD COUNT 5.08 10^6/uL (4.35-5.55); RED CELL DISTRIBUTION WIDTH 13.4 % (11.5-14.0); SEGMENTED NEUTROPHILS % (AUTO) 66.7 % (42-78); TOTAL CELLS COUNTED % (AUTO) 100 %; WHITE BLOOD COUNT 11.1 10^3/uL (4.0-10.5)
[2018-04-09 18:19] LABS: APPEARANCE,URINE SLIGHTLY-CLOUDY; BILIRUBIN,URINE NEGATIVE (NEGATIVE); COLOR,URINE YELLOW; GLUCOSE, URINE NEGATIVE (NEGATIVE); KETONES,URINE NEGATIVE (NEGATIVE); LEUKOCYTE ESTERASE,URINE TRACE (NEGATIVE); NITRITE,URINE NEGATIVE (NEGATIVE); PROTEIN,URINE NEGATIVE (NEGATIVE); URINE SPECIFIC GRAVITY 1.021; UROBILINOGEN,URINE NEGATIVE mg/dL (<2.0)
[2018-04-09] MEDS ORDERED: KETOROLAC TROMETHAMINE INJ/PF 30 MG/1 ML SDV IV ONE (18:23)
[2018-04-09] MEDS ORDERED: MORPHINE SULFATE 10 MG/ML INJ IV ONE (18:23)
--- NOTE | 2018-04-09 18:25 | ER Document Report ---
ED GI/ - General Chief Complaint: Possible Kidney Stone Stated Complaint: FLANK PAIN/BLOOD IN URINE Time Seen by Provider: 04/09/18 17:22 Mode of Arrival: Ambulatory Information source: Patient Notes: Patient presents complaining of right flank pain that started today. Patient does report a previous history of kidney stones patient states that he does have chronic low back pain so it makes it difficult for him to tell if he is having acute pain on top of his chronic pain. Patient denies any nausea or vomiting. Patient denies any fever. TRAVEL OUTSIDE OF THE [place] IN LAST 30 DAYS: No - HPI Patient complains to provider of: Flank pain Onset: This morning Timing/Duration: Persistent Pain Level: 3 Location: Left flank, Right flank Associated symptoms: Chills. denies: Dysuria, Fever, Nausea, Urinary hesitancy , Urinary frequency, Urinary retention, Urinary urgency, Vomiting Exacerbated by: Denies Relieved by: Denies Similar symptoms previously: Yes Recently seen / treated by doctor: No - Related Data Allergies/Adverse Reactions: gabapentin Allergy (Verified 04/09/18 16:51) naproxen [Naproxen] Allergy (Verified 04/09/18 16:51) Past Medical History - General Information source: Patient - Social History Smoking Status: Current Every Day Smoker Smoking Education Provided: Yes Frequency of alcohol use: None Drug Abuse: None Occupation: None Lives with: Family Family History: Reviewed & Not Pertinent Patient has suicidal ideation: No Patient has homicidal ideation: No Neurological Medical History: Reports: Hx Migraine Renal/ Medical History: Reports: Hx Kidney Stones. Denies: Hx Peritoneal Dialysis Musculoskeletal Medical History: Reports Hx Arthritis Psychiatric Medical History: Reports: Hx Bipolar Disorder Surgical Hx: Negative - Immunizations Hx Diphtheria, Pertussis, Tetanus Vaccination: Yes Review of Systems - Review of Systems Constitutional: Chills. denies: Fever EENT: No symptoms reported Cardiovascular: No symptoms reported. denies: Chest pain Respiratory: No symptoms reported. denies: Cough, Short of breath Gastrointestinal: No symptoms reported. denies: Abdominal pain, Nausea, Vomiting Genitourinary: Flank pain. denies: Dysuria Male Genitourinary: No symptoms reported Musculoskeletal: No symptoms reported Skin: No symptoms reported Hematologic/Lymphatic: No symptoms reported Neurological/Psychological: No symptoms reported Physical Exam - Vital signs Vitals: Temp Pulse Resp BP Pulse Ox 97.8 F 84 18 152/96 H 99 10/19/18 16:55 04/09/18 16:55 04/09/18 16:55 04/09/18 16:55 04/09/18 16:55 - General General appearance: Appears well, Alert In distress: None - HEENT Head: Normocephalic, Atraumatic Eyes: Normal Conjunctiva: Normal Nasal: Normal Mouth/Lips: Normal Mucous membranes: Normal Neck: Normal, Supple. No: Lymphadenopathy - Respiratory Respiratory status: No respiratory distress Chest status: Nontender Breath sounds: Normal. No: Rales, Rhonchi, Stridor, Wheezing Chest palpation: Normal - Cardiovascular Rhythm: Regular Heart sounds: S1 appreciated, S2 appreciated Murmur: No - Abdominal Inspection: Normal Distension: No distension Bowel sounds: Normal Tenderness: Nontender - Back Back: CVA tenderness - right - Extremities General upper extremity: Normal inspection, Normal ROM General lower extremity: Normal inspection, Normal ROM - Neurological Neuro grossly intact: Yes Cognition: Normal Brunson Coma Scale Eye Opening: Spontaneous Reagan Coma Scale Verbal: Oriented Brunson Coma Scale Motor: Obeys Commands Reagan Coma Scale Total: 15 - Psychological Associated symptoms: Normal affect, Normal mood - Skin Skin Temperature: Warm Skin Moisture: Dry Skin Color: Normal Course - Re-evaluation Re-evalutation: 04/09/[address] scan findings. Patient given an outpatient number for urology follow-up. No concern for sepsis or UTI at this time although urine will be cultured. Discussed worsening symptoms that patient should return immediately for. Patient verbalized understanding and agrees with plan of care. - Vital Signs Vital signs: Temp Pulse Resp BP Pulse Ox 97.4 F 72 18 147/105 H 100 04/09/18 19:27 04/09/18 19:27 04/09/18 16:55 04/09/18 19:27 04/09/18 19:27 - Laboratory Result Diagrams: 04/09/18 17:58 04/09/18 17:58 Laboratory results interpreted by me: 04/09/18 04/09/18 04/09/18 17:58 17:58 17:58 WBC 11.1 H Basophils % 2.3 H Glucose 63 L Urine Blood LARGE H Ur Leukocyte Esterase TRACE H 04/09/18 18:53 Labs- Entire Visit 10/19/18 10/19/18 10/19/18 17:58 17:58 17:58 WBC 11.1 H RBC 5.08 Hgb 16.3 Hct 47.5 MCV 93 MCH 32.1 MCHC 34.4 RDW 13.4 Plt Count 294 Seg Neutrophils % 66.7 Lymphocytes % 18.0 Monocytes % 9.3 Eosinophils % 3.7 Basophils % 2.3 H Absolute Neutrophils 7.4 Absolute Lymphocytes 2.0 Absolute Monocytes 1.0 Absolute Eosinophils 0.4 Absolute Basophils 0.2 Sodium 142.6 Potassium 4.7 Chloride 107 Carbon Dioxide 22 Anion Gap 14 BUN 17 Creatinine 0.93 Est GFR ( Amer) > 60 Est GFR (Non-Af Amer) > 60 Glucose 63 L Calcium 10.0 Total Bilirubin 0.5 Direct Bilirubin 0.2 Neonat Total Bilirubin Not Reportable Neonat Direct Bilirubin Not Reportable Neonat Indirect Bili Not Reportable AST 23 ALT 29 Alkaline Phosphatase 125 Total Protein 8.1 Albumin 4.9 Urine Color YELLOW Urine Appearance SLIGHTLY-CLOUDY Urine pH 5.0 Ur Specific Harrison 1.021 Urine Protein NEGATIVE Urine Glucose (UA) NEGATIVE Urine Ketones NEGATIVE Urine Blood LARGE H Urine Nitrite NEGATIVE Urine Bilirubin NEGATIVE Urine Urobilinogen NEGATIVE Ur Leukocyte Esterase TRACE H Urine WBC (Auto) 9 Urine RBC (Auto) 80 Squamous Epi Cells Auto <1 Urine Mucus (Auto) FEW Urine Ascorbic Acid NEGATIVE - Diagnostic Test Radiology reviewed: Reports reviewed Discharge - Discharge Clinical Impression: Ureteral stone, Flank pain Condition: Stable Disposition: HOME, SELF-CARE Additional Instructions: Return immediately for any new or worsening symptoms Followup with your primary care provider, call tomorrow to make a followup appointment Follow-up with urologist for further evaluation, call tomorrow for an appointment, [facility] urology [phone] KIDNEY STONE: You are passing or have passed a kidney stone. These stones are usually due to increased calcium or uric acid concentrations in your urine. Stones within the kidney itself are not painful. The pain occurs as the stone leaves the kidney to pass down the long tube, called the ureter, leading to the bladder. If the stone is small, it will usually pass by itself. Most patients can pass the stone at home. You will usually receive medications for pain, nausea or vomiting, and sometimes a medication to assist in passing the kidney stone. However, if the pain is very severe or if vomiting prevents you from taking oral pain medications, you may need to return for further treatment. Drink three or four quarts of fluids per day. You will be given pain medication (if needed) and urine strainers. Strain all your urine to see if the stone passes. If your doctor has asked you to bring the stone in for analysis, return with the stone once it has passed. Return if pain or vomiting become severe, if you develop a high fever, if you are unable to pass your urine, or if other unusual symptoms occur. TORADOL INJECTION: You have been given an injection of ketorolac tromethamine (Toradol). This is an excellent, safe drug for pain control. It also has potent antiinflammatory action. You should have significant pain relief within about one hour. Toradol is not addicting and is non-sedating. It does not interfere with driving or work. Call or return if you develop itching, hives, shortness of breath, or rash. PAIN MEDICATION INJECTION: You have received an injection of a pain medication. You should experience significant pain relief within 45 minutes. This drug is a narcotic - - it will impair your judgement, slow your reaction time and make you sleepy ( as well as relieve your pain). Narcotics also can cause nausea. You should not drive, work with machinery, or perform any task requiring mental alertness until all effects of the medication are gone -- six to eight hours. Do not take any alcohol, or sedatives, and do not take any other medication without checking with your physician. ORAL NARCOTIC MEDICATION: You have been given a prescription for pain control. This medication is a narcotic. It's best taken with food, as nausea can result if taken on an empty stomach. Don't operate machinery or drive within six hours of taking this medication. Do not combine this medicine with alcohol, or with any medication which can cause sedation (such as cold tablets or sleeping pills) unless you get permission from the physician. Narcotics tend to cause constipation. If possible, drink plenty of fluids and eat a diet high in fiber and fruits. Please be aware that prescription narcotics also have the potential for abuse. People become addicted to these medications because of the general sense of wellbeing that they induce. This feeling along with a significant reduction in tension, anxiety, and aggression provides a stimulating seductive quality to these drugs. Once your pain is under control, we encourage you to discard your unused narcotics. FLOMAX (tamsulosin): Flomax is a medicine that shrinks the prostate gland. It helps relieve symptoms of benign prostatic hypertrophy, such as frequent urination, weak stream, and inadequate emptying. It has been shown to dilate the ureter (tube leading from the kidney to the bladder) and help in passing kidney stones Flomax usually causes no side effects. You may notice slight tiredness and dizziness for a few days. Some patients develop nasal congestion. Rarely, impotence can occur. If the symptoms are bothersome and don't improve with continued use, call your doctor. Contact your doctor or return if you have fainting spells, severe weakness or dizziness, shortness of breath, or rash. FOLLOW-UP CARE: If you have been referred to a physician for follow-up care, call the physician s office for an appointment as you were instructed or within the next two days. If you experience worsening or a significant change in your symptoms, notify the physician immediately or return to the Emergency Department at any time for re-evaluation. Prescriptions: Cephalexin Monohydrate [Keflex 500 mg Capsule] 500 mg PO Q6H 5 Days capsule Oxycodone HCl/Acetaminophen [Percocet 5-325 mg Tablet] 1 tab PO ASDIR PRN #15 tablet PRN Reason: Tamsulosin HCl [Flomax 0.4 mg Cap.sr] 0.4 mg PO DAILY #7 cap.sr.24h
--- NOTE | 2018-04-09 18:29 | RADIOLOGY REPORT (SQ) ---
EXAM DESCRIPTION: CT LTD RENAL STONE PROTOCOL ON COMPLETED DATE/TIME: 04/09/2018 6:06 pm REASON FOR STUDY: Flank pain COMPARISON: 04/15/2016 TECHNIQUE: CT scan of the abdomen and pelvis performed without intravenous or oral contrast. Images reviewed with lung, soft tissue, and bone windows. Reconstructed coronal and sagittal MPR images revi ewed. All images stored on PACS. All CT scanners at this facility use dose modulation, iterative reconstruction, and/or weight based d osing when appropriate to reduce radiation dose to as low as reasonably achievable (ALARA). [facility]: Dose Right [facility]: CareDose [facility]: Dose Right [facility]: Teradose 4D [facility]: Smart CohesiveFT RADIATION DOSE: CT Rad equipment meets quality standard of care and radiation dose reduction techniq ues were employed. CTDIvol: 6.6 mGy. DLP: 370 mGy-cm.mGy. LIMITATIONS: None. FINDINGS: LOWER CHEST: No significant findings. No nodules or infiltrates. NON-CONTRASTED LIVER, SPLEEN, ADRENALS: Evaluation limited by lack of IV contrast. No identified sign ificant masses. PANCREAS: No masses. No peripancreatic inflammatory changes. GALLBLADDER: No identified stones by CT criteria. No inflammatory changes to suggest cholecystitis. RIGHT KIDNEY AND URETER: No suspicious masses. Assessment limited by lack of IV contrast. There are few small nonobstructing intrarenal calculi. No hydronephrosis or hydroureter. LEFT KIDNEY AND URETER: No suspicious masses. Assessment limited by lack of IV contrast. Small nono bstructing intrarenal calculi. 2 mm calculus in the proximal left ureter seen best on image 53. 4 m m calculus in the distal left ureter 2 or 3 cm from the UVJ. Minimal hydroureter. AORTA AND RETROPERITONEUM: No aneurysm. No retroperitoneal masses or adenopathy. BOWEL AND PERITONEAL CAVITY: No obvious masses or inflammatory changes. No free fluid. APPENDIX: Normal. PELVIS, BLADDER, AND ABDOMINAL WALL:No abnormal masses. No free fluid. Bladder normal. BONES: No significant findings. OTHER: No other significant finding. IMPRESSION: 1. Small nonobstructing intrarenal calculi. 2. Mild left hydroureter. There appear to be 2 ureteral calculi. The smaller is in the proximal ur eter and measures about 2 mm. The larger is in the distal ureter and measures about 4 mm. COMMENT: Quality ID # [id number]: Final reports with documentation of one or more dose reduction techniques (e.g., Automated exposure control, adjustment of the mA and/or kV according to patient size, use of iterative reconstruction technique) TECHNICAL DOCUMENTATION: JOB ID: [id number] [employer]- All Rights Reserved Reading location - IP/workstation name: [email or web address]
[2018-04-09 18:35] LABS: ALANINE AMINOTRANSFERASE 29 U/L (21-72); ALBUMIN 4.9 g/dL (3.5-5.0); ALKALINE PHOSPHATASE 125 U/L (38-126); ANION GAP 14 (5-19); ASPARTATE AMINO TRANSFERASE 23 U/L (17-59); BILIRUBIN,DIRECT 0.2 mg/dL (0.0-0.4); BILIRUBIN,TOTAL 0.5 mg/dL (0.2-1.3); BLOOD UREA NITROGEN 17 mg/dL (7-20); CARBON DIOXIDE 22 mmol/L (22-30); CHLORIDE 107 mmol/L (98-107); GLUCOSE 63 mg/dL (75-110); POTASSIUM 4.7 mmol/L (3.6-5.0); SODIUM 142.6 mmol/L (137-145); TOTAL PROTEIN 8.1 g/dL (6.3-8.2)
[2018-04-09] MEDS ORDERED: TAMSULOSIN HCL 0.4 MG CAP.SR.24H PO ONE (18:52)
[2018-04-09 19:29] VITALS: BP 147/105
== END 2018-04-09 19:30 | disposition home or self-care (01) ==
LOC: ER 16:50
DX: N13.2 Hydronephrosis with renal and ureteral calculous obstruction (principal); R10.9 Unspecified abdominal pain; R68.83 Chills (without fever); M54.5 Low back pain; G89.29 Other chronic pain; Z88.6 Allergy status to analgesic agent; Z88.8 Allergy status to other drugs, medicaments and biological substances; F17.200 Nicotine dependence, unspecified, uncomplicated
CPT/HCPCS: 99284; 96374; 36415; 87086; 85025; 80053; 81001; 76380; J1885

== ENCOUNTER 2018-12-11 10:13 | Emergency (ER) | payer SELFPAY ==
[2018-12-11] MEDS ORDERED: KETOROLAC TROMETHAMINE INJ/PF 30 MG/1 ML SDV IV ONE (10:27)
[2018-12-11] MEDS ORDERED: ONDANSETRON HCL INJ/PF 4 MG/2 ML SDV IV ONE ×2 (10:27→14:19)
[2018-12-11] MEDS ORDERED: MORPHINE SULFATE 10 MG/ML INJ IV ONE ×3 (10:30→14:19)
[2018-12-11] MEDS ORDERED: NORMAL SALINE 1000 ML 1,000 ML IV ONE ×2 (10:30→12:02)
--- NOTE | 2018-12-11 10:32 | ER Document Report ---
ED Medical Screen (RME) - General Chief Complaint: Flank Pain Stated Complaint: BACK PAIN Time Seen by Provider: 12/11/18 10:25 Mode of Arrival: Ambulatory Information source: Patient Notes: Patient is a 43-year-old male presented to the emergency department with chief complaint of right flank pain. Patient reports that the pain started last night abruptly. He does not have any blood in his urine or dysuria but does report some urinary retention. Patient reports he thinks it might be kidney stone. Patient states he had fever and chills last night, denies any nausea or vomiting. Exam: Right sided CVA tenderness as well as tenderness to the right flank and slightly into the right low abdomen. I have greeted and performed a rapid initial assessment of this patient. A comprehensive ED assessment and evaluation of the patient, analysis of test results and completion of the medical decision making process will be conducted by additional ED providers. I have specifically instructed the patient or family members with the patient to immediately return to any nursing staff should anything change in the patient's condition or with their chief complaint. This medical record was dictated with voice recognizing software. There may be grammatical, syntax errors that are unintended. TRAVEL OUTSIDE OF THE [place] IN LAST 30 DAYS: No - Related Data Allergies/Adverse Reactions: gabapentin Allergy (Verified 12/11/18 10:13) naproxen [Naproxen] Allergy (Verified 12/11/18 10:13) Past Medical History - Social History Frequency of alcohol use: None Drug Abuse: None - Past Medical History Cardiac Medical History: Reports: Hx Hypertension Neurological Medical History: Reports: Hx Migraine Renal/ Medical History: Reports: Hx Kidney Stones. Denies: Hx Peritoneal Dialysis Musculoskeltal Medical History: Reports Hx Arthritis Psychiatric Medical History: Reports: Hx Bipolar Disorder - Immunizations Hx Diphtheria, Pertussis, Tetanus Vaccination: Yes Physical Exam - Vital signs Vitals: Temp Pulse Resp BP Pulse Ox 97.7 F 115 H 20 145/95 H 97 12/11/18 10:18 12/11/18 10:12/11/18 10:12/11/18 10:12/11/18 10:18 Course - Vital Signs Vital signs: Temp Pulse Resp BP Pulse Ox 97.7 F 115 H 20 145/95 H 97 12/11/18 10:18 12/11/18 10:18 12/11/18 10:18 12/11/18 10:18 12/11/18 10:18
[2018-12-11 11:27] LABS: APPEARANCE,URINE TURBID; BILIRUBIN,URINE NEGATIVE (NEGATIVE); GLUCOSE, URINE NEGATIVE (NEGATIVE); KETONES,URINE 20 mg/dL (NEGATIVE); LEUKOCYTE ESTERASE,URINE LARGE (NEGATIVE); NITRITE,URINE NEGATIVE (NEGATIVE); PROTEIN,URINE >=500 mg/dL (NEGATIVE); URINE SPECIFIC GRAVITY 1.019; UROBILINOGEN,URINE NEGATIVE mg/dL (<2.0)
[2018-12-11 11:30] LABS: COLOR,URINE YELLOW
[2018-12-11 11:36] LABS: HEMATOCRIT 47.4 % (37.9-51.0); HEMOGLOBIN 16.2 g/dL (13.5-17.0); MEAN CORPUSCULAR HGB CONC 34.1 g/dL (32.0-36.0); MEAN CORPUSCULAR VOLUME 94 fl (80-97); PLATELET COUNT 245 10^3/uL (150-450); RED BLOOD COUNT 5.05 10^6/uL (4.35-5.55); RED CELL DISTRIBUTION WIDTH 14.4 % (11.5-14.0)
[2018-12-11 11:38] LABS: ALANINE AMINOTRANSFERASE 31 U/L (21-72); ALBUMIN 4.5 g/dL (3.5-5.0); ALKALINE PHOSPHATASE 107 U/L (38-126); ANION GAP 11 (5-19); ASPARTATE AMINO TRANSFERASE 27 U/L (17-59); BILIRUBIN,DIRECT 0.3 mg/dL (0.0-0.4); BILIRUBIN,TOTAL 0.9 mg/dL (0.2-1.3); BLOOD UREA NITROGEN 20 mg/dL (7-20); CARBON DIOXIDE 22 mmol/L (22-30); CHLORIDE 108 mmol/L (98-107); GLUCOSE 95 mg/dL (75-110); POTASSIUM 4.5 mmol/L (3.6-5.0); SODIUM 140.8 mmol/L (137-145); TOTAL PROTEIN 7.4 g/dL (6.3-8.2)
[2018-12-11 11:57] LABS: ABSOLUTE LYMPHOCYTES# (MANUAL) 0.2 10^3/uL (0.5-4.7); ABSOLUTE MONOCYTES # (MANUAL) 1.8 10^3/uL (0.1-1.4); BASOPHILS % (MANUAL) 0 % (0-2); EOSINOPHILS % (MANUAL) 0 % (0-6); LYMPHOCYTES % (MANUAL) 1 % (13-45); MONOCYTES % (MANUAL) 9 % (3-13); SEGMENTED NEUTROPHILS % (MAN) 90 % (42-78); TOTAL CELLS COUNTED 100
[2018-12-11 11:59] LABS: ANISOCYTOSIS SLIGHT; PLATELET COMMENT ADEQUATE; TOXIC GRANULATION 1+; TOXIC VACUOLATION PRESENT
[2018-12-11] MEDS ORDERED: CEFTRIAXONE 1 GM/D5W RTU 1 GM/50 ML RTUPB IV ONE (12:06)
--- NOTE | 2018-12-11 12:06 | ER Document Report ---
ED General - General Chief Complaint: Flank Pain Stated Complaint: BACK PAIN Time Seen by Provider: 12/11/18 10:25 Mode of Arrival: Ambulatory Notes: Patient is a 43-year-old male presented to the emergency department with chief complaint of right flank pain. Patient reports that the pain started last night abruptly. He does not have any blood in his urine or dysuria but does report some urinary retention. Patient reports he thinks it might be kidney stone. Patient states he had fever and chills last night, denies any nausea or vomiting. Patient has history of kidney stones but is never required any surgical removal or lithotripsy. Patient states the pain is in his right flank and radiates around into his right lower quadrant. He said he is drank about 12 or 13 20 ounce bottles of water overnight but is still having difficulty urinating. No acute shortness of breath or chest pain. No other complaints. TRAVEL OUTSIDE OF THE [place] IN LAST 30 DAYS: No - Related Data Allergies/Adverse Reactions: gabapentin Allergy (Verified 12/11/18 10:13) naproxen [Naproxen] Allergy (Verified 12/11/18 10:13) Past Medical History - General Information source: Patient - Social History Smoking Status: Current Every Day Smoker Frequency of alcohol use: None Drug Abuse: None Family History: Reviewed & Not Pertinent Patient has suicidal ideation: No Patient has homicidal ideation: No - Past Medical History Cardiac Medical History: Reports: Hx Hypertension Neurological Medical History: Reports: Hx Migraine Renal/ Medical History: Reports: Hx Kidney Stones. Denies: Hx Peritoneal Dialysis Musculoskeletal Medical History: Reports Hx Arthritis Psychiatric Medical History: Reports: Hx Bipolar Disorder - Immunizations Hx Diphtheria, Pertussis, Tetanus Vaccination: Yes Review of Systems - Review of Systems Constitutional: See HPI EENT: No symptoms reported Cardiovascular: See HPI Respiratory: See HPI Gastrointestinal: See HPI Genitourinary: See HPI Male Genitourinary: No symptoms reported Musculoskeletal: No symptoms reported Skin: No symptoms reported Hematologic/Lymphatic: No symptoms reported Neurological/Psychological: No symptoms reported Physical Exam - Vital signs Vitals: Temp Pulse Resp BP Pulse Ox 97.7 F 115 H 20 145/95 H 97 12/11/18 10:18 12/11/18 10:18 12/11/18 10:18 12/11/18 10:18 12/11/18 10:18 - Notes Notes: PHYSICAL EXAMINATION: Reviewed vital signs and charting by RN GENERAL: Alert, interacts well. Mild distress. HEAD: Normocephalic, atraumatic. EYES: Pupils equal and round. Extraocular movements intact. ENT: Oral mucosa moist, tongue midline. NECK: Full range of motion. Trachea midline. LUNGS: Clear to auscultation bilaterally, no wheezes, rales, or rhonchi. No respiratory distress. HEART: Regular rate and rhythm. No murmur ABDOMEN: soft, right lower quadrant tenderness to palpation. No distention. Bowel sounds present BACK: Acute right CVAT EXTREMITIES: Moves all 4 extremities spontaneously. No edema, No cyanosis. PSYCH: Normal affect, normal mood. SKIN: Warm, dry, normal turgor. No rashes or lesions noted. Course - Re-evaluation Re-evalutation: 12/11/18 12:01 Patient with known history of kidney stones. Patient with a significant pyelonephritis. Patient with potential urinary obstruction. I am going to proceed to CT abdomen without contrast to assess for obstructed, infected nephrolithiasis. Rocephin 1 g IV ordered. 12/11/18 12:06 12/11/18 13:48 CT abdomen/pelvis resulted showing a large 4 mm x 4 mm x 8 mm stone at the UVJ with moderate hydronephrosis. Discussed briefly with Dr. Del Toro and recommendation is to transfer patient. I called [facility] and awaiting urology callback. 12/11/18 14:[address] Travis Estrada, urologist on-call at [facility], who accepted the patient. His recommendation was because BLS or ALS transport will take 6+ hours if the patient was stable to travel by POV. I discussed this with the patient and they are agreeable to this. M aníbal form and transfer packet will be completed and taken with them. Patient has normal vital signs. Patient does not have any lines or drips. Awaiting update on room assignment. 12/11/18 16:[address] Estrada. Plan is for patient to drive directly to [facility] and they will check in through outpatient registration go directly to the OR. An [employer] form has been signed and patient will take the transfer packet with him. I gave him an additional morphine 2 mg prior to transfer. At the time of transfer patient's vital signs were within normal limits and he is stable for transfer via POV. Patient is in full understanding of the plan and his will drive him there. - Vital Signs Vital signs: Temp Pulse Resp BP Pulse Ox 97.9 F 94 14 116/67 98 12/11/18 14:46 12/11/18 14:46 12/11/18 14:46 12/11/18 14:46 12/11/18 14:46 - Laboratory Result Diagrams: 12/11/18 10:48 12/11/18 10:45 Laboratory results interpreted by me: 12/11/18 12/11/18 12/11/18 10:45 10:45 10:48 WBC 20.0 H RDW 14.4 H Seg Neuts % (Manual) 90 H Lymphocytes % (Manual) 1 L Abs Neuts (Manual) 18.0 H Abs Lymphs (Manual) 0.2 L Abs Monocytes (Manual) 1.8 H Chloride 108 H Urine Protein >=500 H Urine Ketones 20 H Urine Blood LARGE H Ur Leukocyte Esterase LARGE H Discharge - Discharge Clinical Impression: Pyelonephritis, Hydronephrosis with renal and ureteral calculous obstruction Condition: Stable Disposition: [facility]
--- NOTE | 2018-12-11 13:11 | RADIOLOGY REPORT (SQ) ---
EXAM DESCRIPTION: CT ABD/PELVIS NO ORAL OR IV COMPLETED DATE/TIME: 12/11/2018 12:41 pm REASON FOR STUDY: R flank pain with pyelonephritis COMPARISON: 04/09/2018 TECHNIQUE: CT scan of the abdomen and pelvis performed without intravenous or oral contrast. Images reviewed with lung, soft tissue, and bone windows. Reconstructed coronal and sagittal MPR images revi ewed. All images stored on PACS. All CT scanners at this facility use dose modulation, iterative reconstruction, and/or weight based d osing when appropriate to reduce radiation dose to as low as reasonably achievable (ALARA). [facility]: Dose Right [facility]: CareDose [facility]: Dose Right [facility]: Teradose 4D [facility]: Smart DigitalTangible RADIATION DOSE: CT Rad equipment meets quality standard of care and radiation dose reduction techniq ues were employed. CTDIvol: 7.0 mGy. DLP: 407 mGy-cm.mGy. LIMITATIONS: None. FINDINGS: LOWER CHEST: No significant findings. No nodules or infiltrates. NON-CONTRASTED LIVER, SPLEEN, ADRENALS: Evaluation limited by lack of IV contrast. No identified sign ificant masses. PANCREAS: No masses. No peripancreatic inflammatory changes. GALLBLADDER: No identified stones by CT criteria. No inflammatory changes to suggest cholecystitis. RIGHT KIDNEY AND URETER: No suspicious masses. Assessment limited by lack of IV contrast. A nonobst ructing nephrolith is seen within the superior pole. Moderate hydronephrosis and ureterectasis on t he basis of a knee 3 x 5 x 8 mm distal ureteral stone noting an additional 4 x 2 x 4 mm ureterolith j ust cranial to the ureterovesicular junction. LEFT KIDNEY AND URETER: No suspicious masses. Assessment limited by lack of IV contrast. Scattered nonobstructing nephroliths are seen throughout the collecting system. No hydronephrosis or hydroure ter. AORTA AND RETROPERITONEUM: No aneurysm. No retroperitoneal masses or adenopathy. BOWEL AND PERITONEAL CAVITY: No obvious masses or inflammatory changes. No free fluid. APPENDIX: Not visualized. PELVIS, BLADDER, AND ABDOMINAL WALL:No abnormal masses. No free fluid. Bladder normal. BONES: Degenerative changes are seen of the hips and spine. OTHER: No other significant finding. IMPRESSION: Moderate right-sided hydronephrosis on the basis of 2 distal ureteral stones as detailed above. COMMENT: Quality ID # [id number]: Final reports with documentation of one or more dose reduction techniques (e.g., Automated exposure control, adjustment of the mA and/or kV according to patient size, use of iterative reconstruction technique) TECHNICAL DOCUMENTATION: JOB ID: [id number] [employer]- All Rights Reserved Reading location - IP/workstation name: [email or web address]
[2018-12-11 14:53] VITALS: BP 116/67
== END 2018-12-11 15:00 | disposition short-term general hospital (02) ==
LOC: ER 10:13
DX: N13.6 Pyonephrosis (principal); R10.9 Unspecified abdominal pain; R33.9 Retention of urine, unspecified; F17.200 Nicotine dependence, unspecified, uncomplicated; I10 Essential (primary) hypertension; Z87.442 Personal history of urinary calculi
CPT/HCPCS: 96376; 99285; 96361; 96375; 96365; 36415; 85025; 80053; 81001; 74176; J1885; J2270; J2405; J7030; J0696

== ENCOUNTER 2019-01-26 19:24 | Emergency (ER) | payer SELFPAY ==
[2019-01-26 19:31] VITALS: BP 153/101
--- NOTE | 2019-01-26 20:01 | ER Document Report ---
HPI - HPI Time Seen by Provider: 01/26/19 19:56 Pain Level: 2 Notes: Patient is a 43-year-old male with a history of hypertension and kidney stones who presents complaining of right upper dental pain and possible abscess near tooth #2. Patient states that the tooth broke a couple days ago when he has had pain and swelling since then. Patient states that he is still able to eat and drink, but does have a decreased p.o. intake due to the pain. He has tried some [id number] meds with minimal relief. No other concerns or complaints. Denies any headache, fever, head injury, neck pain, hoarseness, drooling, URI, sore throat, chest pain, palpitations, syncope, cough, shortness of breath, wheeze, dyspnea, abdominal pain, nausea/vomiting/diarrhea, urinary retention, dysuria, hematuria, or rash. - ROS Systems Reviewed and Negative: Yes All other systems reviewed and negative Past Medical History - Social History Smoking Status: Current Every Day Smoker Family History: Reviewed & Not Pertinent - Past Medical History Cardiac Medical History: Reports: Hx Hypertension Neurological Medical History: Reports: Hx Migraine Renal/ Medical History: Reports: Hx Kidney Stones. Denies: Hx Peritoneal Dialysis Musculoskeletal Medical History: Reports Hx Arthritis Psychiatric Medical History: Reports: Hx Bipolar Disorder - Immunizations Hx Diphtheria, Pertussis, Tetanus Vaccination: Yes Vertical Provider Document - CONSTITUTIONAL Agree With Documented VS: Yes Notes: PHYSICAL EXAMINATION: GENERAL: Well-appearing, well-nourished and in no acute distress. HEAD: Atraumatic, normocephalic. EYES: Pupils equal round and reactive to light, extraocular movements intact, sclera anicteric, conjunctiva are normal. ENT: Nares patent and without discharge. oropharynx clear without exudates. No tonsilar hypertrophy or erythema. Moist mucous membranes. No sinus tenderness. Uvula midline. No palatine shift. No tongue protrusion. No respiratory compromise. Mouth: Poor dentition. + severe decay and mild gingivitis. + small abscess behind #2. No facial swelling. + tenderness to tooth #2. NECK: Normal range of motion, supple without lymphadenopathy. No rigidity/meningismus. LUNGS: Breath sounds clear to auscultation bilaterally and equal. No wheezes rales or rhonchi. HEART: Regular rate and rhythm without murmurs, rubs, gallops. NEUROLOGICAL: Cranial nerves grossly intact. Normal speech, normal gait. PSYCH: Normal mood, normal affect. SKIN: Warm, Dry, normal turgor, no rashes or lesions noted. - INFECTION CONTROL TRAVEL OUTSIDE OF THE U.S. IN LAST 30 DAYS: No Course - Re-evaluation Re-evalutation: 01/26/19 20:00 Patient is an afebrile, well-hydrated, 38-year-old male who presents to the ED with dental pain, suspect nerve root etiology versus infection. Vitals are acceptable. PE is otherwise unremarkable. Incision and drainage performed successfully without any complications. No labs or imaging warranted at this time based on H&P. Viscous lidocaine dispensed today. I will send him home with a prescription for clindamycin. Low suspicion for any meningitis, sepsis, peritonsillar/pharyngeal abscess, respiratory compromise, Oliver's, temporal arteritis, or other emergent systemic condition at this time. Patient is aware this condition can change from initial presentation and he needs to monitor symptoms closely. Conservative measures otherwise for symptoms. Call to schedule an appointment with a dentist for further evaluation and management. Recheck with your PCM this week as well. Return to the ED with any worsening/concerning symptoms otherwise as reviewed in discharge. Patient is in agreement. - Vital Signs Vital signs: Temp Pulse Resp BP Pulse Ox 98.1 F 94 15 153/101 H 98 01/26/19 19:29 01/26/19 19:29 01/26/19 19:29 01/26/19 19:29 01/26/19 19:29 Procedures - Incision and Drainage Mouth Type: Simple Blade size: 11 Incision Method: Incision made by scalpel Amount/type of drainage: moderate purulence Discharge - Discharge Clinical Impression: Dental abscess Condition: Stable Disposition: HOME, SELF-CARE Instructions: Clindamycin ([facility]) Additional Instructions: [place] and floss twice daily Maintain fluid intake Take antibiotics as directed Mouthwash, salt water gargles, peroxide rinse as needed Tylenol/ibuprofen as needed Recheck with PCM this week Call today/tomorrow and schedule an appointment with your dentist for further evaluation Return to the ED with any worsening symptoms and/or development of fever, headache, facial swelling, swelling of lips/tongue/throat, trouble swallowing, drooling, hoarseness, neck pain/stiffness, chest pain, palpitations, syncope, shortness of breath, trouble breathing, abdominal pain, n/v/d, numbness/tingling, or other worsening symptoms that are concerning to you. Prescriptions: Clindamycin HCl [Cleocin 300 mg Capsule] 300 mg PO TID #30 capsule Forms: Elevated Blood Pressure, Smoking Cessation Education Referrals: [facility] [Provider Group] - Follow up in 3-5 days
[2019-01-26] MEDS ORDERED: LIDOCAINE 2% VISCOUS SOLN 20 ML UDCUP PO ONE (20:03)
== END 2019-01-26 20:19 | disposition home or self-care (01) ==
LOC: ER 19:24
DX: K04.7 Periapical abscess without sinus (principal); I10 Essential (primary) hypertension; F17.200 Nicotine dependence, unspecified, uncomplicated; Z87.442 Personal history of urinary calculi
CPT/HCPCS: 41800; J3490

== ENCOUNTER 2019-05-03 11:00 | Emergency (ER) | payer SELFPAY ==
[2019-05-03] MEDS ORDERED: ONDANSETRON HCL INJ/PF 4 MG/2 ML SDV IV ONE ×2 (11:19→13:30)
[2019-05-03] MEDS ORDERED: HYDROMORPHONE HCL INJ/PF 2 MG/ML AMPULE IV ONE ×2 (11:19→13:30)
--- NOTE | 2019-05-03 11:20 | ER Document Report ---
ED Medical Screen (RME) - General Chief Complaint: Flank Pain Stated Complaint: FLANK PAIN/FEVER Time Seen by Provider: 05/03/19 11:14 TRAVEL OUTSIDE OF THE U.S. IN LAST 30 DAYS: No - HPI Notes: 05/03/19 11:32 43-year-old male with history of right kidney stone that required surgery to the emergency department with complaints of right flank pain that has been getting worse for the past several months but significantly so in the past 2 days. States that he had a fever of 102 last night. Admits to nausea and vomiting. States that the pain is unbearable. He states that he took 800 mg of Motrin david or to arrival with no relief. He states he is seeing a urologist in [place]. I performed a brief medical screening exam on this patient and determined he needs further management and evaluation by means at ER provider. I placed initial orders to help expedite in his treatment plan today to include lab work and medications. - Related Data Allergies/Adverse Reactions: gabapentin Allergy (Verified 12/11/18 10:13) naproxen [Naproxen] Allergy (Verified 12/11/18 10:13) Past Medical History - Past Medical History Cardiac Medical History: Reports: Hx Hypertension Neurological Medical History: Reports: Hx Migraine Renal/ Medical History: Reports: Hx Kidney Stones. Denies: Hx Peritoneal Dialysis Musculoskeltal Medical History: Reports Hx Arthritis Psychiatric Medical History: Reports: Hx Bipolar Disorder - Immunizations Hx Diphtheria, Pertussis, Tetanus Vaccination: Yes Physical Exam - Vital signs Vitals: Temp Pulse Resp BP Pulse Ox 97.8 F 77 18 172/111 H 98 05/03/19 11:05/03/19 11:05/03/19 11:05/03/19 11:05/03/19 11:09 Course - Vital Signs Vital signs: Temp Pulse Resp BP Pulse Ox 97.8 F 77 18 172/111 H 98 05/03/19 11:05/03/19 11:09 05/03/19 11:05/03/19 11:09 05/03/19 11:09
[2019-05-03 12:45] LABS: HEMATOCRIT 47.2 % (37.9-51.0); HEMOGLOBIN 16.1 g/dL (13.5-17.0); MEAN CORPUSCULAR HEMOGLOBIN 31.9 pg (27.0-33.4); MEAN CORPUSCULAR VOLUME 94 fl (80-97); PLATELET COUNT 269 10^3/uL (150-450); RED BLOOD COUNT 5.04 10^6/uL (4.35-5.55); RED CELL DISTRIBUTION WIDTH 13.9 % (11.5-14.0); WHITE BLOOD COUNT 7.6 10^3/uL (4.0-10.5)
[2019-05-03 12:49] LABS: APPEARANCE,URINE CLEAR; BILIRUBIN,URINE NEGATIVE (NEGATIVE); COLOR,URINE STRAW; GLUCOSE, URINE NEGATIVE (NEGATIVE); KETONES,URINE NEGATIVE (NEGATIVE); PROTEIN,URINE NEGATIVE (NEGATIVE); URINE SPECIFIC GRAVITY 1.006; UROBILINOGEN,URINE NEGATIVE mg/dL (<2.0)
[2019-05-03 13:04] LABS: ALBUMIN 4.6 g/dL (3.5-5.0); ALKALINE PHOSPHATASE 122 U/L (38-126); ANION GAP 11 (5-19); ASPARTATE AMINO TRANSFERASE 22 U/L (17-59); BILIRUBIN,DIRECT 0.2 mg/dL (0.0-0.4); BILIRUBIN,TOTAL 0.4 mg/dL (0.2-1.3); BLOOD UREA NITROGEN 19 mg/dL (7-20); CALCIUM 10.1 mg/dL (8.4-10.2); CARBON DIOXIDE 25 mmol/L (22-30); CHLORIDE 107 mmol/L (98-107); GLUCOSE 80 mg/dL (75-110); POTASSIUM 4.8 mmol/L (3.6-5.0); TOTAL PROTEIN 7.6 g/dL (6.3-8.2)
--- NOTE | 2019-05-03 13:12 | RADIOLOGY REPORT (SQ) ---
EXAM DESCRIPTION: CT ABD/PELVIS NO ORAL OR IV COMPLETED DATE/TIME: 05/03/2019 12:55 pm REASON FOR STUDY: flank pain COMPARISON: 12/11/2018 TECHNIQUE: CT scan of the abdomen and pelvis performed without intravenous or oral contrast. Images reviewed with lung, soft tissue, and bone windows. Reconstructed coronal and sagittal MPR images revi ewed. All images stored on PACS. All CT scanners at this facility use dose modulation, iterative reconstruction, and/or weight based d osing when appropriate to reduce radiation dose to as low as reasonably achievable (ALARA). [facility]: Dose Right [facility]: CareDose [facility]: Dose Right [facility]: Teradose 4D [facility]: [facility] [employer] RADIATION DOSE: CT Rad equipment meets quality standard of care and radiation dose reduction techniq ues were employed. CTDIvol: 6.6 mGy. DLP: 375 mGy-cm.mGy. LIMITATIONS: None. FINDINGS: LOWER CHEST: No significant findings. No nodules or infiltrates. NON-CONTRASTED LIVER, SPLEEN, ADRENALS: Evaluation limited by lack of IV contrast. No identified sign ificant masses. PANCREAS: No masses. No peripancreatic inflammatory changes. GALLBLADDER: No identified stones by CT criteria. No inflammatory changes to suggest cholecystitis. RIGHT KIDNEY AND URETER: No suspicious masses. Assessment limited by lack of IV contrast. Nonobstru cting small upper calyceal calculus. No hydronephrosis or hydroureter. LEFT KIDNEY AND URETER: No suspicious masses. Assessment limited by lack of IV contrast. Multiple s mall lower calyceal calculi. Hydronephrosis secondary to a 6 mm calculus at the UPJ. AORTA AND RETROPERITONEUM: No aneurysm. No retroperitoneal masses or adenopathy. BOWEL AND PERITONEAL CAVITY: No obvious masses or inflammatory changes. No free fluid. APPENDIX: Not identified. PELVIS, BLADDER, AND ABDOMINAL WALL:No abnormal masses. No free fluid. Bladder normal. BONES: No significant findings. OTHER: No other significant finding. IMPRESSION: Left hydronephrosis secondary to a 6 mm calculus at the UPJ. Bilateral intrarenal calcu li as described. COMMENT: Quality ID # [id number]: Final reports with documentation of one or more dose reduction techniques (e.g., Automated exposure control, adjustment of the mA and/or kV according to patient size, use of iterative reconstruction technique) TECHNICAL DOCUMENTATION: JOB ID: [id number] [employer]- All Rights Reserved Reading location - IP/workstation name: [email or web address]
[2019-05-03 13:34] LABS: ABSOLUTE LYMPHOCYTES# (MANUAL) 1.5 10^3/uL (0.5-4.7); ABSOLUTE MONOCYTES # (MANUAL) 0.4 10^3/uL (0.1-1.4); BASOPHILS % (MANUAL) 0 % (0-2); EOSINOPHILS % (MANUAL) 5 % (0-6); LYMPHOCYTES % (MANUAL) 20 % (13-45); MONOCYTES % (MANUAL) 5 % (3-13); SEGMENTED NEUTROPHILS % (MAN) 70 % (42-78); TOTAL CELLS COUNTED 100
[2019-05-03 13:35] LABS: PLATELET COMMENT ADEQUATE; RBC MORPHOLOGY COMMENT NORMO-CYTIC/CHROMIC
[2019-05-03] MEDS ORDERED: FENTANYL CITRATE INJ/PF 100 MCG/2 ML AMPUL IV ONE (13:36)
[2019-05-03] MEDS ORDERED: NORMAL SALINE 1000 ML 1,000 ML IV PRN (13:56)
--- NOTE | 2019-05-03 14:30 | ER Document Report ---
ED General - General Chief Complaint: Flank Pain Stated Complaint: FLANK PAIN/FEVER Time Seen by Provider: 05/03/19 11:14 TRAVEL OUTSIDE OF THE U.S. IN LAST 30 DAYS: No - HPI Notes: 43-year-old male presents to ED for complaints of left flank pain that started approximately 2 days ago. Patient states his fever was as high as 102 last night, reports nausea and vomiting states pain is 10 out of 10. Patient took ibuprofen prior to arrival with no relief. Patient does have a history of having a right obstructing stone this past November in which she did require a stent placement which was done in [place], he still affiliated with the urologist in [place] presently. Denies fevers, chills, chest pain,palpitations, shortness of breath, dyspnea, diarrhea, abdominal pain, hematuria, headaches, wheezing, ST, URI, neck pain, weakness, bowel or bladder dysfunction, saddle anesthesia, numbness or tingling in bilateral upper or lower extremities equally, muscle paralysis, weakness in bilateral upper or lower extremities equally or rash. - Related Data Allergies/Adverse Reactions: gabapentin Allergy (Verified 12/11/18 10:13) naproxen [Naproxen] Allergy (Verified 12/11/18 10:13) Past Medical History - General Information source: Patient - Social History Smoking Status: Never Smoker Chew tobacco use (# tins/day): No Frequency of alcohol use: None Drug Abuse: None Family History: Reviewed & Not Pertinent Patient has suicidal ideation: No Patient has homicidal ideation: No - Past Medical History Cardiac Medical History: Reports: Hx Hypertension Neurological Medical History: Reports: Hx Migraine Renal/ Medical History: Reports: Hx Kidney Stones. Denies: Hx Peritoneal Dialysis Musculoskeletal Medical History: Reports Hx Arthritis Psychiatric Medical History: Reports: Hx Bipolar Disorder Past Surgical History: Reports: Hx Kidney (Renal Surgery) - Immunizations Hx Diphtheria, Pertussis, Tetanus Vaccination: Yes Review of Systems - Review of Systems Constitutional: See HPI EENT: No symptoms reported Cardiovascular: No symptoms reported Respiratory: No symptoms reported Gastrointestinal: See HPI Genitourinary: No symptoms reported Male Genitourinary: No symptoms reported Musculoskeletal: No symptoms reported Skin: No symptoms reported Hematologic/Lymphatic: No symptoms reported Neurological/Psychological: No symptoms reported Physical Exam - Vital signs Vitals: Temp Pulse Resp BP Pulse Ox 97.8 F 77 18 172/111 H 98 05/03/19 11:09 05/03/19 11:09 05/03/19 11:09 05/03/19 11:09 05/03/19 11:09 - Notes Notes: PHYSICAL EXAMINATION:reviewed vital signs by RN GENERAL: Well-appearing, well-nourished and in moderate distress HEAD: Atraumatic, normocephalic. EYES: Pupils equal round and reactive to light, extraocular movements intact, sclera anicteric, conjunctiva are normal. ENT: Nares patent, oropharynx clear without exudates. Moist mucous membranes. NECK: Normal range of motion, supple without lymphadenopathy LUNGS: Breath sounds clear to auscultation bilaterally and equal. No wheezes rales or rhonchi. HEART: Regular rate and rhythm without murmurs ABDOMEN: Soft, nontender, nondistended abdomen. No guarding, no rebound. No masses appreciated. Left CVA tenderness on palpation. Musculoskeletal: Normal range of motion, no pitting or edema. No cyanosis. NEUROLOGICAL: Cranial nerves grossly intact. Normal speech, normal gait. Normal sensory, motor exams PSYCH: Normal mood, normal affect. SKIN: Warm, Dry, normal turgor, no rashes or lesions noted. Course - Re-evaluation Re-evalutation: 05/03/19 14:29 Presents with findings consistent with acute nephrolithiasis. Urinalysis does show hematuria. Laboratory otherwise unremarkable. Pain was able to be controlled here in the emergency department. Patient is tolerating oral intake. Clinical history is not consistent with an acute abdominal aneurysm or dissection, NH, or pulmonary embolus. Urinalysis does not show findings consistent with an infected stone. Vitals have remained within normal limits. Patient will be discharged with recommendations to follow-up with urology, pain medications, and return precautions. They are in agreement with this plan and verbalized indications return to emergency department. CBC negative for leukocytosis or anemia, CMP shows a creatinine of 1.35 which is elevated from his previous creatinine of one 0.98, BUN is normal. CT abdomen pelvis without contrast shows that patient does have a 6 mm calculus in the UPJ with left hydro nephrosis. Patient is established with Dr. Travis Estrada with [place] [facility]. No urologist is customer solutions architect presently in the ED for consult. Dr. Colon, colleague of Dr. Bill with the same urology group felt the patient could be managed outpatient, as afebrile, does not have a elevated white count, and proper renal stone cocktail can be managed outpatient with being seen in the office tomorrow. Patient given 1 g Rocephin while in the emergency room with IV fluids, discharged home with a course of ciprofloxacin, Flomax, Zofran and [place], advised to not drive drink alcohol or machinery while taking [place] cause sedation or impairment of cognitive function. Patient's sister will be driving him home as well as to the office appointment tomorrow 1:15. After performing a Medical Screening Examination, I estimate there is LOW risk for ACUTE APPENDICITIS, BOWEL OBSTRUCTION, ACUTE CHOLECYSTITIS, PERFORATED DIVERTICULITIS, INCARCERATED HERNIA, PANCREATITIS, TESTICULAR TORSION or PERFORATED ULCER, thus I consider the discharge disposition reasonable. Also, there is no evidence or peritonitis, sepsis, or toxicity. I have reevaluated this patient multiple times and no significant life threatening changes are noted. The patient and I have discussed the diagnosis and risks, and we agree wi th discharging home with close follow-up with the understanding that symptoms and presentations can change. We also discussed returning to the Emergency Department immediately if new or worsening symptoms occur. We have discussed the symptoms which are most concerning (e.g., bloody stool, fever, changing or worsening pain, intractable vomiting - standard verbal up date) that necessitate immediate return. - Vital Signs Vital signs: Temp Pulse Resp BP Pulse Ox 97.8 F 77 18 172/111 H 98 05/03/19 11:09 05/03/19 11:09 05/03/19 11:09 05/03/19 11:09 05/03/19 11:09 - Laboratory Result Diagrams: 05/03/19 12:20 05/03/19 12:20 Laboratory results interpreted by me: 05/03/19 05/03/19 12:20 12:20 Creatinine 1.35 H Est GFR (MDRD) Non-Af 57 L Urine Blood LARGE H Leukocyte Esterase Rfl TRACE H Discharge - Discharge Clinical Impression: Calculus of left kidney, Hydronephrosis, left Condition: Stable Disposition: HOME, SELF-CARE Instructions: Kidney Stone ([facility]), Oral Narcotic Medication ([facility]), Ciprofloxacin ([facility]), Flomax ([facility]) Additional Instructions: You have an appointment tomorrow at 1:15 PM at the [facility] with Dr. Reina, urologist, for follow-up. [address] [place] [address] [address], drink alcohol or operate heavy machinery while taking narcotics and cause sedation and impairment of cognitive function. Use Flomax a s directed, please use the strainer every time you urinate to see if stone is passed. Use Zofran as needed if you get nauseous with taking the narcotics. Please avoid any caffeinated drinks as this can cause dehydration. Please increase oral intake. Forms: Return to Work Referrals: LORENE REINA MD [NO LOCAL MD] - Follow up tomorrow (appointment at 1:15pm at [facility] ) DOLLY ZAMARRIPA MD [ACTIVE STAFF] - Follow up as needed
[2019-05-03] MEDS ORDERED: CEFTRIAXONE 1 GM/D5W RTU 1 GM/50 ML RTUPB IV ONE (15:15)
[2019-05-03] MEDS ORDERED: HYDROCODONE/ACETAMINOPHEN 5-325 MG (6 TAB/ER DISP) PO PRN (15:18)
[2019-05-03 16:45] VITALS: BP 138/77
== END 2019-05-03 16:45 | disposition home or self-care (01) ==
LOC: ER 11:00
DX: N20.0 Calculus of kidney (principal); N13.30 Unspecified hydronephrosis; R50.9 Fever, unspecified; R10.9 Unspecified abdominal pain; R11.2 Nausea with vomiting, unspecified; I10 Essential (primary) hypertension; Z87.442 Personal history of urinary calculi
CPT/HCPCS: 36415; 85025; 80053; 81001; 74176; J1170; J2405; J7030; J0696; 87086

== ENCOUNTER 2019-07-05 13:23 | Emergency (ER) | payer SELFPAY ==
[2019-07-05] MEDS ORDERED: ONDANSETRON HCL INJ/PF 4 MG/2 ML SDV IV ONE ×2 (13:40→16:15)
[2019-07-05] MEDS ORDERED: NORMAL SALINE 1000 ML 1,000 ML IV ONE (13:41)
[2019-07-05] MEDS ORDERED: KETOROLAC TROMETHAMINE INJ/PF 30 MG/1 ML SDV IV ONE ×2 (13:41→16:15)
--- NOTE | 2019-07-05 13:43 | ER Document Report ---
ED Medical Screen (RME) - General Chief Complaint: Back Pain Stated Complaint: BACK PAIN Time Seen by Provider: 07/05/19 13:35 TRAVEL OUTSIDE OF THE U.S. IN LAST 30 DAYS: No - HPI Notes: 07/05/19 13:41 Patient is a 43-year-old male with an extensive kidney stone history who presents complaining of mid right back pain since November intermittently, but also having nausea and "feeling sick" when he eats because of pain. Patient states that he does have pain to his epigastric/right upper quadrant area as well. He is otherwise urinating normally. Patient states that he blacks out when he takes naproxen, but Toradol he does well with. No fever. No recent injury to his back. Pain does not radiate otherwise. I have treated and performed a rapid initial assessment of this patient. A comprehensive ED assessment and evaluation of the patient, analysis of test results and completion of medical decision making process will be conducted by additional ED providers. PHYSICAL EXAMINATION: GENERAL: Well-appearing, well-nourished and in no acute distress. A&Ox4. Answers questions appropriately. Abdomen: Limited exam in triage, but there is tenderness to the right upper quadrant and epigastrium to palpation. + CVA tenderness vs musculoskeletal. Right mid back: There is tenderness noted to palpation of his right mid back as well. - Related Data Allergies/Adverse Reactions: naproxen [Naproxen] Allergy (Verified 07/05/19 13:36) gabapentin Adverse Reaction (Verified 07/05/19 13:36) Nausea Past Medical History - Past Medical History Cardiac Medical History: Reports: Hx Hypertension Neurological Medical History: Reports: Hx Migraine Renal/ Medical History: Reports: Hx Kidney Stones. Denies: Hx Peritoneal Dialysis Musculoskeltal Medical History: Reports Hx Arthritis Psychiatric Medical History: Reports: Hx Bipolar Disorder Past Surgical History: Reports: Hx Kidney (Renal Surgery) - Immunizations Hx Diphtheria, Pertussis, Tetanus Vaccination: Yes Physical Exam - Vital signs Vitals: Temp Pulse Resp BP Pulse Ox 97.5 F 102 H 20 135/84 H 96 07/05/19 13:27 07/05/19 13:27 07/05/19 13:27 07/05/19 13:27 07/05/19 13:27 Course - Vital Signs Vital signs: Temp Pulse Resp BP Pulse Ox 97.5 F 102 H 20 135/84 H 96 01/14/20 13:27 07/05/19 13:27 07/05/19 13:27 07/05/19 13:27 07/05/19 13:27
[2019-07-05 14:29] LABS: ABSOLUTE BASOPHILS # (AUTO) 0.1 10^3/uL (0.0-0.2); ABSOLUTE EOSINOPHILS # (AUTO) 0.5 10^3/uL (0.0-0.6); ABSOLUTE LYMPHOCYTES (AUTO) 1.8 10^3/uL (0.5-4.7); ABSOLUTE MONOCYTES (AUTO) 0.7 10^3/uL (0.1-1.4); ABSOLUTE NEUT (AUTO) 5.2 10^3/uL (1.7-8.2); BASOPHILS % (AUTO) 1.4 % (0-2); EOSINOPHILS % (AUTO) 6.1 % (0-6); HEMATOCRIT 42.9 % (37.9-51.0); HEMOGLOBIN 15.3 g/dL (13.5-17.0); LYMPHOCYTES % (AUTO) 21.8 % (13-45); MEAN CORPUSCULAR HEMOGLOBIN 32.8 pg (27.0-33.4); MEAN CORPUSCULAR HGB CONC 35.6 g/dL (32.0-36.0); MEAN CORPUSCULAR VOLUME 92 fl (80-97); MONOCYTES % (AUTO) 8.8 % (3-13); PLATELET COUNT 248 10^3/uL (150-450); RED BLOOD COUNT 4.66 10^6/uL (4.35-5.55); RED CELL DISTRIBUTION WIDTH 14.3 % (11.5-14.0); SEGMENTED NEUTROPHILS % (AUTO) 61.9 % (42-78); TOTAL CELLS COUNTED % (AUTO) 100 %; WHITE BLOOD COUNT 8.4 10^3/uL (4.0-10.5)
--- NOTE | 2019-07-05 14:50 | RADIOLOGY REPORT (SQ) ---
EXAM DESCRIPTION: U/S ABDOMEN LIMITED W/O DOP COMPLETED DATE/TIME: 07/05/2019 2:13 pm REASON FOR STUDY: RUQ pain/back pain -with renal eval as well please COMPARISON: CT abdomen pelvis 05/03/2019, 12/11/2018, 04/09/2018 TECHNIQUE: Dynamic and static grayscale images acquired of the abdomen and recorded on PACS. Additio nal selected color Doppler and spectral images recorded. LIMITATIONS: Midline bowel gas FINDINGS: PANCREAS: Not well seen LIVER: No masses. Echotexture normal. LIVER VASCULATURE: Normal directional flow of the main portal vein and hepatic veins. GALLBLADDER: No stones. Normal wall thickness. No pericholecystic fluid. ULTRASOUND-DETECTED EDDY'S SIGN: Negative. INTRAHEPATIC DUCTS AND COMMON DUCT: CBD and intrahepatic ducts normal caliber. No filling defects. D istal common duct not well seen due to duodenum gas. INFERIOR VENA CAVA: Normal flow. AORTA: No aneurysm. RIGHT KIDNEY: 9 cm in length with mild cortical thinning. No hydronephrosis. Tiny less than 5 mm i ntrarenal upper pole calculus seen on CT exam 05/03/2019 is not apparent by ultrasound. PERITONEAL AND RIGHT PLEURAL SPACE: No ascites or effusions. OTHER: No other significant findings. IMPRESSION: No gallstones, gallbladder wall thickening or pericholecystic fluid No right-sided hydronephrosis. TECHNICAL DOCUMENTATION: JOB ID: [id number] [employer]- All Rights Reserved Reading location - IP/workstation name: [email or web address]
[2019-07-05 14:58] LABS: ALBUMIN 4.1 g/dL (3.5-5.0); ALKALINE PHOSPHATASE 82 U/L (38-126); ANION GAP 10 (5-19); ASPARTATE AMINO TRANSFERASE 35 U/L (17-59); BILIRUBIN,DIRECT 0.2 mg/dL (0.0-0.4); BILIRUBIN,TOTAL 0.3 mg/dL (0.2-1.3); BLOOD UREA NITROGEN 20 mg/dL (7-20); CALCIUM 10.1 mg/dL (8.4-10.2); CARBON DIOXIDE 27 mmol/L (22-30); CHLORIDE 103 mmol/L (98-107); GLUCOSE 93 mg/dL (75-110); POTASSIUM 4.5 mmol/L (3.6-5.0)
--- NOTE | 2019-07-05 16:04 | ER Document Report ---
ED General - General Chief Complaint: Back Pain Stated Complaint: BACK PAIN Time Seen by Provider: 07/05/19 13:35 Mode of Arrival: Ambulatory Information source: Patient, Relative TRAVEL OUTSIDE OF THE [place] IN LAST 30 DAYS: No - HPI Onset: Other Onset/Duration: Persistent Quality of pain: Sharp Severity: Severe Pain Level: 5 Associated symptoms: Nausea Similar symptoms previously: Yes Recently seen / treated by doctor: Yes - dr bass [facility]rology [facility] - Related Data Allergies/Adverse Reactions: naproxen [Naproxen] Allergy (Verified 07/05/19 16:12) Unknown reaction gabapentin Adverse Reaction (Verified 07/05/19 13:36) Nausea Home Medications: HCTZ 12.5 PO BID Past Medical History - General Information source: Patient, Relative - Social History Smoking Status: Current Every Day Smoker Cigarette use (# per day): Yes Chew tobacco use (# tins/day): No Smoking Education Provided: No Frequency of alcohol use: Occasional Drug Abuse: None Lives with: Family Family History: Reviewed & Not Pertinent Patient has suicidal ideation: No Patient has homicidal ideation: No - Medical History Medical History: Other - pt is construction ironworker helper - Past Medical History Cardiac Medical History: Reports: Hx Hypertension Neurological Medical History: Reports: Hx Migraine Renal/ Medical History: Reports: Hx Kidney Stones. Denies: Hx Peritoneal Dialysis Musculoskeletal Medical History: Reports Hx Arthritis Psychiatric Medical History: Reports: Hx Bipolar Disorder Past Surgical History: Reports: Hx Kidney (Renal Surgery) - Immunizations Hx Diphtheria, Pertussis, Tetanus Vaccination: Yes Physical Exam - Vital signs Vitals: Temp Pulse Resp BP Pulse Ox 97.5 F 102 H 20 135/84 H 96 07/05/19 13:27 07/05/19 13:27 07/05/19 13:27 07/05/19 13:27 07/05/19 13:27 tachycardia Interpretation: Normal - General General appearance: Anxious In distress: Moderate - HEENT Head: Normocephalic Eyes: Normal Conjunctiva: Normal Cornea: Normal Extraocular movements intact: Yes Eyelashes: Normal Pupils: PERRL Nasal: Normal Mouth/Lips: Normal Mucous membranes: Normal Pharynx: Normal Neck: Normal - Respiratory Respiratory status: No respiratory distress Chest status: Nontender Breath sounds: Normal Chest palpation: Normal - Cardiovascular Rhythm: Regular Heart sounds: Normal auscultation Murmur: No - Abdominal Inspection: Normal Distension: No distension Bowel sounds: Normal Tenderness: Nontender - Back Back: Tender - R paraspinal mm bulge very tender to p/p Course - Re-evaluation Re-evalutation: 07/05/19 21:02 he ismuch improved but continues to have pain in his right upper back. I discussed the findings with the patient and he will follow-up with Dr. Ferrell pain management or with orthopedics Dr Christensen - Vital Signs Vital signs: Temp Pulse Resp BP Pulse Ox 97.5 F 102 H 20 135/84 H 96 07/05/19 13:27 07/05/19 13:27 07/05/19 13:27 07/05/19 13:27 07/05/19 13:27 - Laboratory Result Diagrams: 07/05/19 14:15 07/05/19 14:15 Laboratory results interpreted by me: 07/05/19 07/05/19 14:15 17:50 RDW 14.3 H Eos % (Auto) 6.1 H Leukocyte Esterase Rfl TRACE H - Diagnostic Test Radiology reviewed: Reports reviewed Critical Care Note - Critical Care Note Total time excluding time spent on procedures (mins): 60 Discharge - Discharge Clinical Impression: Back pain, Eosinophilia, Muscle strain of right upper back Condition: Fair Disposition: HOME, SELF-CARE Additional Instructions: Follow-up with Dr. Christensen orthopedics and with Dr. Ferrell pain management doctor in their office. I suspect a muscular tear around the rhomboid area; avoid lifting twisting or bending till seen by these doctors; also your eosinophils are elevated which may indicate allergies asthma or parasites please follow-up with your personal doctor about these include ova and parasite check Prescriptions: Chlorzoxazone [Parafon Forte Dsc 500 Mg Tablet] 500 mg PO BID #20 tablet Diclofenac Sodium [Voltaren] 1 applic TP TID PRN #100 gel..gm. PRN Reason: Forms: Return to Work
[2019-07-05] MEDS ORDERED: PROMETHAZINE HCL INJ 25 MG/1 ML VIAL IV ONE (16:10)
[2019-07-05] MEDS ORDERED: HYDROMORPHONE HCL INJ/PF 2 MG/ML AMPULE IV ONE (16:10)
--- NOTE | 2019-07-05 17:00 | RADIOLOGY REPORT (SQ) ---
EXAM DESCRIPTION: CT ABD/PELVIS NO ORAL OR IV COMPLETED DATE/TIME: 07/05/2019 4:24 pm REASON FOR STUDY: pain COMPARISON: 05/03/2019. TECHNIQUE: CT scan of the abdomen and pelvis performed without intravenous or oral contrast. Images reviewed with lung, soft tissue, and bone windows. Reconstructed coronal and sagittal MPR images revi ewed. All images stored on PACS. All CT scanners at this facility use dose modulation, iterative reconstruction, and/or weight based d osing when appropriate to reduce radiation dose to as low as reasonably achievable (ALARA). [facility]: Dose Right [facility]: CareDose [facility]: Dose Right [facility]: Teradose 4D [facility]: Smart [employer] RADIATION DOSE: CT Rad equipment meets quality standard of care and radiation dose reduction techniq ues were employed. CTDIvol: 7.6 mGy. DLP: 441 mGy-cm.mGy. LIMITATIONS: None. FINDINGS: LOWER CHEST: No significant findings. No nodules or infiltrates. NON-CONTRASTED LIVER, SPLEEN, ADRENALS: Evaluation limited by lack of IV contrast. No identified sign ificant masses. PANCREAS: No masses. No peripancreatic inflammatory changes. GALLBLADDER: No identified stones by CT criteria. No inflammatory changes to suggest cholecystitis. RIGHT KIDNEY AND URETER: No suspicious masses. Assessment limited by lack of IV contrast. Small upp er pole calyceal calculus. No hydronephrosis or hydroureter. LEFT KIDNEY AND URETER: No suspicious masses. Assessment limited by lack of IV contrast. Small lowe r pole calyceal calculus. No hydronephrosis or hydroureter. AORTA AND RETROPERITONEUM: No aneurysm. No retroperitoneal masses or adenopathy. BOWEL AND PERITONEAL CAVITY: No obvious masses or inflammatory changes. No free fluid. APPENDIX: Normal. PELVIS, BLADDER, AND ABDOMINAL WALL:No abnormal masses. No free fluid. Bladder normal. BONES: No significant findings. OTHER: No other significant finding. IMPRESSION: SMALL NONOBSTRUCTING CALYCEAL CALCULI IN BOTH KIDNEYS. NO URETERAL CALCULI OR OBSTRUCTI ON. NO OTHER SIGNIFICANT OR ACUTE PROCESS IN THE ABDOMEN OR PELVIS. COMMENT: Quality ID # [id number]: Final reports with documentation of one or more dose reduction techniques (e.g., Automated exposure control, adjustment of the mA and/or kV according to patient size, use of iterative reconstruction technique) TECHNICAL DOCUMENTATION: JOB ID: [id number] [place] [address] [employer]- All Rights Reserved Reading location - IP/workstation name: [email or web address]
[2019-07-05 18:50] LABS: APPEARANCE,URINE CLEAR; BILIRUBIN,URINE NEGATIVE (NEGATIVE); COLOR,URINE YELLOW; GLUCOSE, URINE NEGATIVE (NEGATIVE); KETONES,URINE NEGATIVE (NEGATIVE); PROTEIN,URINE NEGATIVE (NEGATIVE); URINE SPECIFIC GRAVITY 1.015; UROBILINOGEN,URINE NEGATIVE mg/dL (<2.0)
[2019-07-05 21:16] VITALS: BP 131/87
== END 2019-07-05 21:16 | disposition home or self-care (01) ==
LOC: ER 13:23
DX: S29.012A Strain of muscle and tendon of back wall of thorax, initial encounter (principal); X58.XXXA Exposure to other specified factors, initial encounter; D72.1 Eosinophilia; R11.0 Nausea; F17.210 Nicotine dependence, cigarettes, uncomplicated; I10 Essential (primary) hypertension
CPT/HCPCS: 99285; 36415; 87086; 83690; 85025; 80053; 81001; 76705; 74176; J1885; J1170; J2550; J7030

== ENCOUNTER 2020-04-18 19:14 | Emergency (ER) | payer SELFPAY ==
--- NOTE | 2020-04-18 19:33 | ER Document Report ---
ED Medical Screen (RME) - General Chief Complaint: Chest Pain > 30 Stated Complaint: CHEST PAIN BURNING CANT EAT Time Seen by Provider: 04/18/20 19:26 Mode of Arrival: Ambulatory Information source: Patient Notes: 44-year-old male presented to ED for complaint of chest pain x3 to 4 days. He states he cannot eat because of the pain. He states he is eating any acid right now. He states he ate a pack and nebs and the even made his chest hurt. He states his dad had an DC at age around 58 at 63 but it was not from cardiac problems. He states he has had 3 renal surgeries for kidney stones the last 1 was about a year ago. He states he does smoke a pack a day does not drink or use any illicit drugs. States he has never had any cardiac problems. Will get chest pain protocol as well as lipase and give him a GI cocktail and he will be seen by another provider. I have greeted and performed a rapid initial assessment of this patient. A comprehensive ED assessment and evaluation of the patient, analysis of test results and completion of medical decision making process will be conducted by an additional ED providers. TRAVEL OUTSIDE OF THE [place] IN LAST 30 DAYS: No - Related Data Allergies/Adverse Reactions: naproxen [Naproxen] Allergy (Verified 07/05/19 16:12) Unknown reaction gabapentin Adverse Reaction (Verified 07/05/19 13:36) Nausea Past Medical History - Past Medical History Cardiac Medical History: Reports: Hx Hypertension Neurological Medical History: Reports: Hx Migraine Renal/ Medical History: Reports: Hx Kidney Stones. Denies: Hx Peritoneal Dialysis Musculoskeltal Medical History: Reports Hx Arthritis Psychiatric Medical History: Reports: Hx Bipolar Disorder Past Surgical History: Reports: Hx Kidney (Renal Surgery) - Immunizations Hx Diphtheria, Pertussis, Tetanus Vaccination: Yes Physical Exam - Vital signs Vitals: Temp Pulse Resp BP Pulse Ox 97.4 F 75 18 184/114 H 100 04/18/20 19:26 04/18/20 19:26 04/18/20 19:26 04/18/20 19:26 04/18/20 19:26 Course - Vital Signs Vital signs: Temp Pulse Resp BP Pulse Ox 97.4 F 75 18 184/114 H 100 04/18/20 19:26 04/18/20 19:26 04/18/20 19:26 04/18/20 19:26 04/18/20 19:26
[2020-04-18] MEDS ORDERED: METOCLOPRAMIDE HCL ORAL SOLN 10 MG/10 ML UDCUP PO ONE (19:35)
[2020-04-18] MEDS ORDERED: MAG HYDROX/AL HYDROX/SIMETH SUSP 30 ML UDCUP PO ONE (19:35)
[2020-04-18] MEDS ORDERED: LIDOCAINE 2% VISCOUS SOLN 15 ML UDCUP PO ONE (19:35)
--- NOTE | 2020-04-18 20:34 | RADIOLOGY REPORT (SQ) ---
EXAM DESCRIPTION: XR CHEST 2 VIEWS COMPLETED DATE/TME: 04/18/2020 19:27 CLINICAL HISTORY: 44 years, Male, chest pain COMPARISON: Chest x-ray 12/11/2016. TECHNIQUE: PA and lateral views. FINDINGS: Cardiomediastinal silhouette is not enlarged. No suspicious lung pleural bone abnormalities. IMPRESSION: Negative chest x-ray.
[2020-04-18 21:06] LABS: ABSOLUTE BASOPHILS # (AUTO) 0.3 10^3/uL (0.0-0.2); ABSOLUTE LYMPHOCYTES (AUTO) 2.3 10^3/uL (0.5-4.7); ABSOLUTE NEUT (AUTO) 6.3 10^3/uL (1.7-8.2); BASOPHILS % (AUTO) 2.4 % (0-2); EOSINOPHILS % (AUTO) 9.5 % (0-6); HEMATOCRIT 46.1 % (37.9-51.0); LYMPHOCYTES % (AUTO) 21.1 % (13-45); MEAN CORPUSCULAR HEMOGLOBIN 32.6 pg (27.0-33.4); MEAN CORPUSCULAR HGB CONC 34.6 g/dL (32.0-36.0); MEAN CORPUSCULAR VOLUME 94 fl (80-97); MONOCYTES % (AUTO) 8.8 % (3-13); PLATELET COUNT 267 10^3/uL (150-450); RED BLOOD COUNT 4.89 10^6/uL (4.35-5.55); RED CELL DISTRIBUTION WIDTH 14.1 % (11.5-14.0); SEGMENTED NEUTROPHILS % (AUTO) 58.2 % (42-78); TOTAL CELLS COUNTED % (AUTO) 100 %; WHITE BLOOD COUNT 10.8 10^3/uL (4.0-10.5)
[2020-04-18 21:41] LABS: ALBUMIN 4.4 g/dL (3.5-5.0); ALKALINE PHOSPHATASE 88 U/L (38-126); ANION GAP 11 (5-19); ASPARTATE AMINO TRANSFERASE 33 U/L (17-59); BILIRUBIN,DIRECT 0.2 mg/dL (0.0-0.4); BILIRUBIN,TOTAL 0.3 mg/dL (0.2-1.3); BLOOD UREA NITROGEN 15 mg/dL (7-20); CALCIUM 10.9 mg/dL (8.4-10.2); CARBON DIOXIDE 23 mmol/L (22-30); CHLORIDE 108 mmol/L (98-107); GLUCOSE 82 mg/dL (75-110); POTASSIUM 4.2 mmol/L (3.6-5.0); TOTAL PROTEIN 7.4 g/dL (6.3-8.2)
--- NOTE | 2020-04-18 22:10 | ER Document Report ---
ED General - General Chief Complaint: Chest Pain > 30 Stated Complaint: CHEST PAIN BURNING CANT EAT Time Seen by Provider: 04/18/20 19:26 Mode of Arrival: Ambulatory TRAVEL OUTSIDE OF THE [place] IN LAST 30 DAYS: No - HPI Notes: 44-year-old male presents with a burning sensation in the central part of his abdomen/upper chest. Patient states has been present for the past 3 to 4 days. It is severe. He states he is taking Tums every 1 hour which has not relieved the pain. Pain is made worse with eating. This is happened to him multiple times before. He has never had a GI work-up. He has not seen his PCP since the start of the Covid pandemic. No vomiting or diarrhea. No shortness of breath. - Related Data Allergies/Adverse Reactions: naproxen [Naproxen] Allergy (Verified 04/18/20 19:29) Unknown reaction gabapentin Adverse Reaction (Verified 04/18/20 19:29) Nausea Past Medical History - General Information source: Patient - Social History Smoking Status: Current Every Day Smoker Frequency of alcohol use: None Drug Abuse: None Family History: Reviewed & Not Pertinent - Past Medical History Cardiac Medical History: Reports: Hx Hypertension Neurological Medical History: Reports: Hx Migraine Renal/ Medical History: Reports: Hx Kidney Stones. Denies: Hx Peritoneal Dialysis Musculoskeletal Medical History: Reports Hx Arthritis Psychiatric Medical History: Reports: Hx Bipolar Disorder Past Surgical History: Reports: Hx Kidney (Renal Surgery) - Immunizations Hx Diphtheria, Pertussis, Tetanus Vaccination: Yes Review of Systems - Review of Systems Constitutional: No symptoms reported EENT: No symptoms reported Cardiovascular: denies: Chest pain Respiratory: denies: Short of breath Gastrointestinal: See HPI Genitourinary: No symptoms reported Male Genitourinary: No symptoms reported Musculoskeletal: No symptoms reported Skin: No symptoms reported Hematologic/Lymphatic: No symptoms reported Neurological/Psychological: No symptoms reported Physical Exam - Vital signs Vitals: Temp Pulse Resp BP Pulse Ox 97.4 F 75 18 184/114 H 100 04/18/20 19:26 04/18/20 19:26 04/18/20 19:26 04/18/20 19:26 04/18/20 19:26 - General General appearance: Appears well, Alert - HEENT Head: Normocephalic, Atraumatic Eyes: No: Scleral icterus Extraocular movements intact: Yes Pupils: PERRL - Respiratory Breath sounds: Normal - Cardiovascular Rhythm: Regular Heart sounds: Normal auscultation - Abdominal Distension: No distension Bowel sounds: Normal Tenderness: Nontender - Extremities General upper extremity: Normal ROM General lower extremity: Normal ROM - Neurological Neuro grossly intact: Yes Cognition: Normal Orientation: AAOx4 - Psychological Associated symptoms: Normal affect - Skin Skin Temperature: Warm Course - Re-evaluation Re-evalutation: 44-year-old male presents with epigastric/lower chest burning sensation, worsened by foods, has had a history of this. On exam he is nontoxic-appearing, asymptomatic hypertension, lungs are clear, heart RRR, no focal abdominal tende rness. He had a laboratory evaluation done through triage which was notable for elevated eosinophils, no elevation of LFTs/T bili/lipase, troponin negative. Chest x-ray without consolidation. EKG nonischemic. His symptoms are suggestive of reflux, given that he has elevated eosinophils I am suspicious he might have eosinophilic esophagitis which was discussed with patient. I have a low suspicion for cardiac etiology at this time. Prior to evaluation he received a GI cocktail and Reglan. I have ordered him Protonix and Pepcid. Patient was instructed to please follow-up with PCP and seek GI referral for further evaluation. He was given a prescription for Protonix. Return cautions given, patient stable at time of discharge. - Vital Signs Vital signs: Temp Pulse Resp BP Pulse Ox 97.4 F 75 16 131/96 H 99 04/18/20 19:26 04/18/20 19:26 04/18/20 22:01 04/18/20 22:01 04/18/20 22:01 - Laboratory Result Diagrams: 04/18/20 20:49 04/18/20 20:49 Laboratory results interpreted by me: 04/18/20 04/18/20 20:49 20:49 WBC 10.8 H RDW 14.1 H Eos % (Auto) 9.5 H Baso % (Auto) 2.4 H Absolute Eos (auto) 1.0 H Absolute Basos (auto) 0.3 H Chloride 108 H Calcium 10.9 H Magnesium 2.4 H - Diagnostic Test Radiology reviewed: Image reviewed, Reports reviewed - EKG Interpretation by Me Additional EKG results interpreted by me: EKG is interpreted by me. Normal sinus rhythm, rate 76. Narrow QRS, QTC within normal limits. No ST segment elevation or depression. Discharge - Discharge Clinical Impression: Reflux esophagitis Qualifiers: Esophagitis bleeding: without hemorrhage Qualified Code(s): K21.00 - Gastro-esophageal reflux disease with esophagitis, without bleeding Disposition: HOME, SELF-CARE Instructions: Esophagitis ([facility]) Additional Instructions: Please follow-up with your primary care doctor and discuss referral to GI, suspicious for GERD versus eosinophilic esophagitis. Please begin daily acid suppression therapy, you have been prescribed Protonix however you may take any of the ausy-fth-slfpmck medications that are proton pump inhibitors. If symptoms still persistent you may use Pepcid as well. Avoid any acidic or spicy foods. Return to the emergency department for any concerning worsening symptoms. Prescriptions: Pantoprazole Sodium [Protonix [address] Tablet] 20 mg PO QAM #60 tablet. Referrals: ANKUR SALAZAR MD [ACTIVE STAFF] - Follow up as needed RANDALL MAX MD [ACTIVE STAFF] - Follow up as needed
[2020-04-18] MEDS ORDERED: PANTOPRAZOLE SODIUM 40 MG TABLET.DR PO ONE (22:23)
[2020-04-18] MEDS ORDERED: FAMOTIDINE 20 MG TABLET PO ONE (22:23)
[2020-04-18 22:48] VITALS: BP 194/115
--- NOTE | 2020-04-19 07:06 | EKG REPORT ---
SEVERITY:- NORMAL ECG - SINUS RHYTHM : Confirmed by: Riaz Erickson MD 19-Apr-2020 07:04:59
== END 2020-04-18 22:49 | disposition home or self-care (01) ==
LOC: ER 19:14
DX: K21.00 Gastro-esophageal reflux disease with esophagitis, without bleeding (principal); R07.9 Chest pain, unspecified; F17.200 Nicotine dependence, unspecified, uncomplicated; I10 Essential (primary) hypertension; Z87.442 Personal history of urinary calculi
CPT/HCPCS: 93005; 99285; 36415; 83690; 83735; 85025; 80053; 84484; 71046; 93010; J3490 ×2